=== PATIENT | female | born 1940 | race Caucasian/White ===

== ENCOUNTER 2016-09-24 20:35 | Observation (INO) ==
[2016-09-24] MEDS ORDERED: 0.9 % Sodium Chloride 1,000 ML IVC ONE (20:38)
--- NOTE | 2016-09-24 21:08 | Emergency Department Note ---
START Narrative - START START: I examined this patient and my medical decision-making was reviewed with the BLOOD TESTER/PA/Advanced Practice Nurse/Resident Physician. I agree with the documented findings, disposition and treatment plan as described except to the extent set forth below. ED attending note: Patient seen with emergency medicine resident Dr Dc. We independently evaluated the patient. We independently had [id number] contact with the patient. Please see a copy of his note for details of the history and physical, evaluation, management and disposition of this emergency Department patient. Briefly: 75-year-old female by EMS for acute altered mental status. History of dementia this is on top of this chronic issue which is "bubbly-type EMS and the patient's spouse shortly. Patient has both lapses in short long-term memory. Noncontrast head CT read by us prior to radiologic interpretation shows no acute bleed mass or shift. Awaiting remainder of the laboratory studies. Admission anticipated. Provided 30 minutes critical care service for this patient.
[2016-09-24 21:22] LABS: Basophils % 0.6 %; Hematocrit 34.8 % (35.3-44.9); Hemoglobin 12.3 g/dL (11.5-15.4); Immature Granulocytes % 0.3 % (0-4); Lymphocytes # 0.4 K/mcL (0.6-4.6); Lymphocytes % 6.3 %; Mean Corpuscular HGB Conc 35.3 g/dL (31.6-35.5); Mean Corpuscular Hemoglobin 32.7 pg (28.0-33.3); Mean Corpuscular Volume 92.6 fL (83.0-100.0); Mean Platelet Volume 8.7 fL (9.4-12.4); Monocytes # 0.8 K/mcL (0.0-1.3); Neutrophils # 5.2 K/mcL (1.6-8.9); Platelet Count 186 K/mcL (140-400); Red Blood Count 3.76 M/mcL (3.82-4.97); Segmented Neutrophils % 80.8 %
--- NOTE | 2016-09-24 21:31 | Emergency Department Note ---
Disposition Clinical Impression: Altered mental state, Hyponatremia, Generalized weakness UTI (urinary tract infection) Qualifiers: Urinary tract infection type: acute cystitis Hematuria presence: with hematuria Qualified Code(s): N30.01 - Acute cystitis with hematuria Disposition: Admitted As Inpatient Condition: Good Referrals: Ferny Barr MD [Primary Care Provider] - Forms: ED Satisfaction Letter Altered Mental Status HPI - General Chief Complaint: ED Altered Mental Status Stated Complaint: AMS, Vomiting, Weakness Source: patient, family Limitations: no limitations Nursing Notes Reviewed: Yes Vital Signs Reviewed: Yes - History of Present Illness HPI Narrative: 75-year-old female with a history of only dementia who takes only a daily aspirin presents to the emergency department with acute confusion. She has a history of dementia but over the last 12 hours she has had an acute worsening. Her states she has been generally weak all over but not one side. No history of stroke or cardiac disease in the past. She takes no anticoagulants other than aspirin. Patient is very confused and only oriented to person. She denies any chest pain or shortness of breath. Denies any abdominal pain. She did have a vomiting episode. Denies any weakness or numbness in her extremities. Denies any change in vision. Denies any headache. - Related Data Home Medications Medication Instructions Recorded Confirmed Aspirin 81 mg PO DAILY 03/18/16 09/24/16 Calcium Carbonate/Vitamin D3 1 each PO DAILY 09/24/16 09/24/16 [Calcium 600-Vit D3 200 Tablet] Allergies Allergy/AdvReac Type Severity Reaction Status Date / Time No Known Allergies Allergy Verified 03/18/16 15:04 All systems ED: reviewed and negative except as stated. Constitutional: Denies: fever, chills Cardiovascular: Denies: chest pain Respiratory: Denies: cough, dyspnea Gastrointestinal: Reports: nausea, vomiting. Denies: abdominal pain Musculoskeletal: Denies: back pain, neck pain Integumentary: Denies: rash Neurological: Denies: headache, weakness, numbness Endocrine: Denies: fatigue Past Medical History - Past Medical History Medical history: Reports: dementia Psychiatric history: Reports: no psych history SHIPPING AND RECEIVING ASSISTANT history: Reports: no SHIPPING AND RECEIVING ASSISTANT history - Social History Smoking Status: Never smoker Smokeless Tobacco Status: No Alcohol use: Reports: none Drug use: Reports: none Physical Exam General: Well-nourished appearing female, she does appear somewhat confused, alert to person only Cardiovascular: Regular rate and rhythm. S1, S2. No murmurs, rubs or gallops. Respiratory: Breath sounds clear bilaterally. No wheezing, rales or rhonchi. No resp distress Abdomen: Soft, nontender. No guarding, rebound or rigidity. Normal bowel sounds throughout. No palpable organomegaly Eyes: Pupils equally round and reactive to light, extraocular muscles intact, conjunctiva clear, no nystagmus HENT: Normocephalic, no signs of head injury. No oral mucosal lesions. Moist mucous membranes Neuro: Cranial nerves intact. No motor or sensory deficit. Normal cerebellar function including finger-nose and heel to moura. Musculoskeletal: No joint tenderness or swelling Skin: No lesions. No diaphoresis. Normal turgor. Normal color Psych: Confused - General Limitations: no limitations General appearance: alert Course Course Narrative: Presents with confusion starting today. History of pneumonia and UTI in the past. On exam patient is confused, oriented to person only. It is unclear baseline but states this is now her normal. She went out to eat today and was doing just fine. On exam lungs are clear, abdomen is soft, heart and lungs unremarkable. Lab work is unremarkable other than a sodium which is 129. She was given some IV fluids for this. Urinalysis shows nitrite positive, leukocyte esterase positive UTI with many bacteria under microscope. She was given IV fluids and 1 g of Rocephin in the emergency department. CT of the head returns showing nothing acute other than some ischemic chronic vascular disease. No focal deficits on examination. When discussing treatment plan with the seems a bit confused and may suffer from some dementia himself. My concern is that the patient will not get adequate treatment at home and the reasons to return do not seem to be understood by the . With her acute change, generalized weakness, and little back-up care at home, I feel that admission to the hospital for observation is the safest. Discussed this with the and he is comfortable with this too. Plan to admit for UTI, hyponatremia, generalized weakness and altered mental status. Discussed with the on-call hospitalist, Dr. Conrad who accepts remission, no further orders at this time Vital Signs Temperature 98.1 F 09/24/16 20:38 Pulse Rate 78 09/24/16 20:38 Respiratory Rate 18 09/24/16 20:38 Blood Pressure 145/77 09/24/16 20:38 O2 Sat by Pulse Oximetry 98 09/24/16 20:38 Temperature 98.1 F 09/24/16 20:38 Pulse Rate 78 09/24/16 20:38 Respiratory Rate 18 09/24/16 20:38 Blood Pressure 145/77 09/24/16 20:38 O2 Sat by Pulse Oximetry 98 09/24/16 20:38 Oxygen Delivery Oxygen Delivery Room Air Altered Mental Status - Lab Data Result diagrams: 09/24/16 21:15 09/24/16 21:15 Lab Results 09/24/16 09/24/16 09/24/16 Range/Units 20:38 21:15 21:15 WBC 6.5 (4.3-11.1) K/mcL RBC 3.76 L (3.82-4.97) M/mcL Hgb 12.3 (11.5-15.4) g/dL Hct 34.8 L (35.3-44.9) % MCV 92.6 (83.0-100.0) fL MCH 32.7 (28.0-33.3) pg MCHC 35.3 (31.6-35.5) g/dL RDW 12.0 (11.5-14.5) % Plt Count 186 (140-400) K/mcL MPV 8.7 L (9.4-12.4) fL Immature Gran % 0.3 (0-4) % Seg Neutrophils % 80.8 % Lymphocytes % 6.3 % Monocytes % 12.0 % Eosinophils % 0.0 % Basophils % 0.6 % Neutrophils # 5.2 (1.6-8.9) K/mcL Lymphocytes # 0.4 L (0.6-4.6) K/mcL Monocytes # 0.8 (0.0-1.3) K/mcL Eosinophils # 0.0 (0.0-0.6) K/mcL Basophils # 0.0 (0.0-0.2) K/mcL Sodium 129 L (136-145) mEq/L Potassium 3.7 (3.5-4.5) mEq/L Chloride 98 (98-109) mEq/L Carbon Dioxide 22 (19-29) mEq/L BUN 9 (7-20) mg/dL Creatinine 0.64 (0.57-1.11) mg/dL Est GFR ( Amer) > 60 (> 60) Est GFR (Non-Af Amer) > 60 (> 60) BUN/Creatinine Ratio 14 (6-26) Glucose 115 H (70-99) mg/dL Calculated Osmolality 268 L (280-300) Calcium 8.9 (8.6-10.8) mg/dL Total Bilirubin 0.7 (0.2-1.2) mg/dL AST 24 (5-34) Units/L ALT 8 (0-55) Units/L Alkaline Phosphatase 66 (38-126) Units/L Troponin I (0-0.03) ng/mL Serum Total Protein 6.8 (6.0-8.3) g/dL Albumin 4.0 (3.5-5.0) g/dL Globulin 2.8 (2.4-3.5) g/dL Albumin/Globulin Ratio 1.4 (1.1-2.2) TSH 0.641 (0.350-4.840) mcIU/mL Urine Color Yellow (Yellow) Urine Clarity Cloudy A (Clear) Urine pH 6.5 (5.0-8.0) pH Units Ur Specific [place] 1.014 (1.010-1.025) Urine Protein Negative (Neg-Trace) mg/dL Urine Glucose (UA) Normal (Normal) mg/dL Urine Ketones Negative (Negative) mg/dL Urine Blood Large H (Negative) Urine Nitrite Positive A (Negative) Urine Bilirubin Negative (Negative) Urine Urobilinogen Normal (Normal) mg/dL Ur Leukocyte Esterase Moderate H (Negative) Urine Microscopic RBC 15-30 H (0-3) per hpf Urine Microscopic WBC 15-30 H (0-3) per hpf Ur Squamous Epith Cells None Seen (None-Few) per lpf Urine Bacteria Many H (None-Few) per hpf Hyaline Casts Few (None-Few) per lpf Urine Yeast Test Not Performed Ur Culture Indicated? YES A (NO) 09/24/16 Range/Units 21:15 WBC (4.3-11.1) K/mcL RBC (3.82-4.97) M/mcL Hgb (11.5-15.4) g/dL Hct (35.3-44.9) % MCV (83.0-100.0) fL MCH (28.0-33.3) pg MCHC (31.6-35.5) g/dL RDW (11.5-14.5) % Plt Count (140-400) K/mcL MPV (9.4-12.4) fL Immature Gran % (0-4) % Seg Neutrophils % % Lymphocytes % % Monocytes % % Eosinophils % % Basophils % % Neutrophils # (1.6-8.9) K/mcL Lymphocytes # (0.6-4.6) K/mcL Monocytes # (0.0-1.3) K/mcL Eosinophils # (0.0-0.6) K/mcL Basophils # (0.0-0.2) K/mcL Sodium (136-145) mEq/L Potassium (3.5-4.5) mEq/L Chloride (98-109) mEq/L Carbon Dioxide (19-29) mEq/L BUN (7-20) mg/dL Creatinine (0.57-1.11) mg/dL Est GFR ( Amer) (> 60) Est GFR (Non-Af Amer) (> 60) BUN/Creatinine Ratio (6-26) Glucose (70-99) mg/dL Calculated Osmolality (280-300) Calcium (8.6-10.8) mg/dL Total Bilirubin (0.2-1.2) mg/dL AST (5-34) Units/L ALT (0-55) Units/L Alkaline Phosphatase (38-126) Units/L Troponin I 0.01 (0-0.03) ng/mL Serum Total Protein (6.0-8.3) g/dL Albumin (3.5-5.0) g/dL Globulin (2.4-3.5) g/dL Albumin/Globulin Ratio (1.1-2.2) TSH (0.350-4.840) mcIU/mL Urine Color (Yellow) Urine Clarity (Clear) Urine pH (5.0-8.0) pH Units Ur Specific [place] (1.010-1.025) Urine Protein (Neg-Trace) mg/dL Urine Glucose (UA) (Normal) mg/dL Urine Ketones (Negative) mg/dL Urine Blood (Negative) Urine Nitrite (Negative) Urine Bilirubin (Negative) Urine Urobilinogen (Normal) mg/dL Ur Leukocyte Esterase (Negative) Urine Microscopic RBC (0-3) per hpf Urine Microscopic WBC (0-3) per hpf Ur Squamous Epith Cells (None-Few) per lpf Urine Bacteria (None-Few) per hpf Hyaline Casts (None-Few) per lpf Urine Yeast Ur Culture Indicated? (NO) - EKG Data EKG results narrative: EKG shows a sinus rhythm with a rate of [address] elevation or depression. GA, QRS, QT interval within normal limits. Normal axis. Poor R wave progression. Previous EKG on 08/08/2007 shows similar wave morphology without any acute ischemic changes. TPA Checklist - LKW: 3-4.5 hrs Add. Contraindications Patient/family understanding: The patient/family members have been counseled and understood the risk, benefit , and alternatives of treatment.
[2016-09-24 21:36] LABS: Alanine Aminotransferase 8 Units/L (0-55); Albumin/Globulin Ratio 1.4 (1.1-2.2); Alkaline Phosphatase 66 Units/L (38-126); Aspartate Amino Transferase 24 Units/L (5-34); BUN/Creatinine Ratio 14 (6-26); Bilirubin,Total 0.7 mg/dL (0.2-1.2); Blood Urea Nitrogen 9 mg/dL (7-20); Calcium 8.9 mg/dL (8.6-10.8); Carbon Dioxide 22 mEq/L (19-29); Chloride 98 mEq/L (98-109); Globulin 2.8 g/dL (2.4-3.5); Glucose 115 mg/dL (70-99); Osmolality,Calculated 268 (280-300); Potassium 3.7 mEq/L (3.5-4.5); Sodium 129 mEq/L (136-145); Total Protein 6.8 g/dL (6.0-8.3); eGFR For African Americans > 60 (> 60); eGFR For Non-African Americans > 60 (> 60)
[2016-09-24 21:46] LABS: Bilirubin,Urine Negative (Negative); Blood,Urine Large (Negative); Clarity,Urine Cloudy (Clear); Color,Urine Yellow (Yellow); Glucose,Urine (UA) Normal (Normal); Ketones,Urine Negative (Negative); Leukocyte Esterase,Urine Moderate (Negative); Nitrite,Urine Positive (Negative); PH,Urine 6.5 pH Units (5.0-8.0); Protein,Urine Negative (Neg-Trace); Specific Gravity,Urine 1.014 (1.010-1.025); Urobilinogen,Urine Normal (Normal)
[2016-09-24 21:47] LABS: Hyaline Casts,Urine Few per lpf (None-Few); Squamous Epithelial Cell,Urine None Seen per lpf (None-Few); WBC,Urine 15-30 per hpf (0-3)
[2016-09-24 21:57] LABS: Bacteria,Urine Many per hpf (None-Few); RBC,Urine 15-30 per hpf (0-3)
[2016-09-24 21:58] LABS: Thyroid Stimulating Hormone 0.641 mcIU/mL (0.350-4.840)
[2016-09-24] MEDS ORDERED: Ondansetron 4 MG/2 ML VIAL IVP PRN (23:38)
[2016-09-24] MEDS ORDERED: Naloxone 0.4 MG/ML INJ IVP PRN (23:38)
[2016-09-24] MEDS ORDERED: Acetaminophen 325 MG TABLET PO PRN (23:38)
[2016-09-24] MEDS ORDERED: 0.9 % Sodium Chloride 1,000 ML IVC SCH (23:45)
--- NOTE | 2016-09-24 23:50 | Internal Med History&Physical ---
Date of Encounter: 09/25/16 Time of Encounter: 23:05 Assessment and Plan (1) UTI (urinary tract infection) Current visit: Yes Status: Acute 1. Culture urine. 2. Continue IV antibiotics and adjust according to urine culture results. Qualifiers: Urinary tract infection type: acute cystitis Hematuria presence: with hematuria Qualified Code(s): N30.01 - Acute cystitis with hematuria (2) Nausea and vomiting Current visit: No Status: Acute 1. Suspect viral etiology and/or secondary to UTI. 2. Hydrate with IVF and treat nasuea with anti-emetics. 3. Monitor I/O. Qualifiers: Vomiting type: unspecified Vomiting Intractability: unspecified Qualified Code(s): R11.2 - Nausea with vomiting, unspecified (3) Dementia Current visit: No Status: Chronic 1. According to , patient has history of mild dementia and she has no functional impairment when feeling well. 2. Pt currently is NOT at her baseline and she represents an acute change. 3. Likely due to UTI. 4. Monitor closely and will update as to return to baseline state. Qualifiers: Dementia type: Alzheimer's disease Alzheimer's disease onset: early-onset Dementia behavioral disturbance: with behavioral disturbance Qualified Code( s): G30.0 - Alzheimer's disease with early onset; F02.81 - Dementia in other diseases classified elsewhere with behavioral disturbance (4) Acute encephalopathy Current visit: Yes Status: Acute 1. Most likely due to UTI. 2. Will also check for Influenza and treat if necessary. 3. Avoid mind-altering medications and monitor closely. (5) DVT prophylaxis Current visit: Yes Status: Acute 1. Heparin SQ. Internal Medicine - H&P: HPI Chief complaint: confusion; weakness; vomiting Admitted From: Emergency Dept Plans for Post Hospital Care: Home History of present illness: Ms. Haynes is a 75 year old female who presents with a 1 day history of confusion , weakness, nausea, and vomiting. History is obtained exclusively from patient' s and from ER notes and records. Patient has a history of mild dementia but, according to her , she is fairly functional and independent. She was at her baseline state earlier today, and she actually went to lunch with some friends. Later this afternoon, she became weak, confused, had some nausea, and had a couple episodes of vomiting. Because of persistent and worsening confusion and weakness, patient's called the squad who brought patient to ER. Workup in the ER was negative except for findings consistent with UTI. She will subsequently admitted to the hospitalist service. Upon my assessment of the patient, she is somnolent, arousable, confused, disoriented, and appears dehydrated. Her is present at the bedside in the ER. He confirms the above history. He denies patient having had any fevers , chills, or night sweats. She has had no cough or congestion. She has had no ill contacts that he is aware of. He confirms her history of baseline dementia. He denies patient has any history of recurrent UTI, but he did confirm she did have one recent UTI several months ago which led to a previous admission. Past Med Surg Social Fam HX - Past Medical History Source: old records reviewed, obtained from family Medical history: dementia Psychiatric history: no psych history - Past Surgical History Surgical History: no surgical history - Social History Smoking Status: Never smoker Smokeless Tobacco Status: No Alcohol use: occasionally (usually one drink with dinner most nights of the week -- per ) Drug use: none Current living situation: Home, With Family Activity Level: Independent ambulation Recent Out of Country Travel Within the Last 8 Weeks: No - Family History Mother History Unknown: Yes Living Status: Father History Unknown: Yes Living Status: Internal Medicine - H&P: Meds Aspirin 81 mg PO DAILY 03/18/16 [History] Calcium Carbonate/Vitamin D3 [Calcium 600-Vit D3 200 Tablet] 1 each PO DAILY [History] Allergies No Known Allergies Allergy (Verified 03/18/16 15:04) ROS unobtainable: due to mental status Review of systems: ROS as obtained by detailed below - Constitutional Constitutional: no chills, no fever(s), no night sweats - EENT Eyes: no blurry vision Ears: no tinnitus Nose, mouth and throat: no nasal congestion, no sinus pain, no sore throat - Cardiovascular Cardiovascular ROS IM: no chest pain, no dyspnea, no dyspnea on exertion - Respiratory Respiratory: no cough, no hemoptysis, no chest congestion - Gastrointestinal Gastrointestinal: nausea, vomiting, no abdominal pain, no diarrhea - Genitourinary Genitourinary: no flank pain, no hematuria - Musculoskeletal Musculoskeletal ROS IM: no arthralgias, no back pain - Integumentary Integumentary IM: no rash - Neurological Neurological ROS: confusion, weakness, no focal weakness, no frequent falls, no headache(s) - Psychiatric Psychiatric: no anxiety, no depression - Endocrine Endocrine IM: no polydipsia, no polyuria - Allergic/Immunologic Allergic/Immunologic: no GI upset with certain foods - Constitutional Vitals: Temp Pulse Resp BP Pulse Ox 98.1 F 78 18 145/77 98 09/24/16 20:38 09/24/16 20:38 09/24/16 20:38 09/24/16 20:38 09/24/16 20:38 General appearance: Present: cooperative, A&O X 1, pleasant, no acute distress Exam: looks dehydrated; sleeping -- easily arousable - Head Head exam: Present: atraumatic, normal inspection - Expanded Head Exam Head exam expanded: Absent: abrasion, contusion, general tenderness - Eye Eye exam: Present: EOMI, normal appearance. Absent: scleral icterus Pupils: Present: normal accommodation - ENT ENT exam: Present: mucous membranes dry, normal exam, normal oropharynx - Neck Neck exam general surgery: Present: full ROM, supple. Absent: tenderness, nuchal rigidity, thyromegaly - Expanded Neck Exam Neck exam: Absent: carotid bruit - Respiratory Respiratory exam: Present: CTAB. Absent: rales, respiratory distress, rhonchi, wheezes - Cardiovascular Cardiovascular exam: Present: RRR, +S1, +S2. Absent: diastolic murmur, systolic murmur - GI/Abdominal GI/Abdominal exam: Present: normal bowel sounds, soft. Absent: guarding, hepatomegaly, mass, rebound, splenomegaly, tenderness - Extremities Exam Extremities exam: Present: full ROM, warm. Absent: calf tenderness, joint swelling, pedal edema, tenderness - Back Exam Back exam: Present: normal inspection. Absent: CVA tenderness (L), CVA tenderness (R), tenderness - Neurological Exam Neurological exam: Present: altered, CN II-XII intact, no focal deficits, strengths equal and symetr throughout. Absent: speech deficit - Psychiatric Psychiatric exam: Present: normal affect. Absent: agitated, anxious, depressed - Skin Skin exam: Present: dry, warm. Absent: rash Internal Med - H&P Results - Labs CBC & Chem 7: 09/24/16 21:15 09/24/16 21:15 - EKG Data -: EKG Interpreted by Myself EKG shows normal: sinus rhythm Rate: normal - EKG Data Prior EKG available for review: yes When compared to previous EKG: there is no significant change EKG comments: 09/24/16 23:55 WNL; no acute changes - Diagnostic Studies Chest x-ray Status: image reviewed by me (lungs clear)
[2016-09-25] MEDS: *HR* Heparin 5,000 UNIT/ML VIAL SQ SCH ×3 (01:22→18:23)
[2016-09-25 05:41] LABS: Basophils % 0.6 %; Hemoglobin 12.2 g/dL (11.5-15.4); Immature Granulocytes % 0.2 % (0-4); Lymphocytes # 0.6 K/mcL (0.6-4.6); Lymphocytes % 11.6 %; Mean Corpuscular HGB Conc 34.9 g/dL (31.6-35.5); Mean Corpuscular Hemoglobin 32.9 pg (28.0-33.3); Mean Corpuscular Volume 94.3 fL (83.0-100.0); Mean Platelet Volume 9.3 fL (9.4-12.4); Monocytes % 19.4 %; Neutrophils # 3.4 K/mcL (1.6-8.9); Platelet Count 169 K/mcL (140-400); Red Blood Count 3.71 M/mcL (3.82-4.97); Red Cell Distribution Width 12.2 % (11.5-14.5); Segmented Neutrophils % 68.2 %
[2016-09-25 05:59] LABS: Alanine Aminotransferase 7 Units/L (0-55); Albumin 3.6 g/dL (3.5-5.0); Albumin/Globulin Ratio 1.4 (1.1-2.2); Alkaline Phosphatase 60 Units/L (38-126); Aspartate Amino Transferase 22 Units/L (5-34); BUN/Creatinine Ratio 10 (6-26); Bilirubin,Total 0.6 mg/dL (0.2-1.2); Blood Urea Nitrogen 6 mg/dL (7-20); Calcium 8.6 mg/dL (8.6-10.8); Carbon Dioxide 23 mEq/L (19-29); Chloride 101 mEq/L (98-109); Globulin 2.6 g/dL (2.4-3.5); Glucose 108 mg/dL (70-99); Magnesium 1.8 mg/dL (1.6-2.6); Osmolality,Calculated 274 (280-300); Potassium 3.6 mEq/L (3.5-4.5); Sodium 133 mEq/L (136-145); Total Protein 6.2 g/dL (6.0-8.3); eGFR For African Americans > 60 (> 60); eGFR For Non-African Americans > 60 (> 60)
[2016-09-25 06:34] LABS: Platelet Estimate Normal (Normal)
[2016-09-25] MEDS: Aspirin 81 MG TAB.CHEW PO SCH (10:43)
[2016-09-25] MEDS ORDERED: 0.9 % Sodium Chloride 1,000 ML IVC SCH (11:48)
--- NOTE | 2016-09-25 19:00 | Internal Med Progress Note ---
Date of Encounter: 09/25/16 Time of Encounter: 11:30 - Assessment and plan (1) Urinary retention Current Visit: Yes Status: Acute (2) UTI (urinary tract infection) Current Visit: Yes Status: Acute Qualifiers: Urinary tract infection type: acute cystitis Hematuria presence: with hematuria Qualified Code(s): N30.01 - Acute cystitis with hematuria (3) Constipation Current Visit: No Status: Acute Qualifiers: Constipation type: slow transit constipation Qualified Code(s): K59.01 - Slow transit constipation (4) Dementia Current Visit: No Status: Chronic Qualifiers: Dementia type: Alzheimer's disease Alzheimer's disease onset: early-onset Dementia behavioral disturbance: with behavioral disturbance Qualified Code( s): G30.0 - Alzheimer's disease with early onset; F02.81 - Dementia in other diseases classified elsewhere with behavioral disturbance - Time Spent With Patient Plan discussed with the at bedsi is straightCath, check bladder scan every 6 hours, Continue current antibiotics. Increase fluids, add laxatives , Ambulate , PT consult 25 - 35 minutes - Subjective Interval history: patient is more alert than yesterday, need maximum assistance with ambulation, low oral intake, post voiding residual 550. - Constitutional Vitals: Temp Pulse Resp BP Pulse Ox 99.1 F 70 16 122/60 98 09/25/16 15:10 09/25/16 15:10 09/25/16 15:10 09/25/16 15:10 09/25/16 15:10 General appearance: Present: cooperative, A&O X 1, pleasant, no acute distress - Neck Neck exam general surgery: Present: supple, trachea midline. Absent: lymphadenopathy - Respiratory Respiratory exam: Present: decreased breath sounds. Absent: accessory muscle use, rales, rhonchi, wheezes - Cardiovascular Cardiovascular exam: Present: RRR, +S1, +S2. Absent: diastolic murmur, gallop, rubs, systolic murmur - GI/Abdominal GI/Abdominal exam: Present: normal bowel sounds, soft, tenderness (Suprapubic tenderness), no peritoneal signs. Absent: distended - Extremities Exam Extremities exam: Present: warm, radial pulses palpable and symetrical. Absent : calf tenderness, cyanotic, pedal edema - Skin Skin exam: Present: dry, intact Internal Medicine: Result - Labs CBC & Chem 7: 09/25/16 04:59 09/25/16 04:59 Labs: Short CBC 09/25/16 Range/Units 04:59 WBC 5.0 (4.3-11.1) K/mcL Hgb 12.2 (11.5-15.4) g/dL Hct 35.0 L (35.3-44.9) % Plt Count 169 (140-400) K/mcL Neutrophils # 3.4 (1.6-8.9) K/mcL BMP 09/25/16 04:59 Sodium 133 L Potassium 3.6 Chloride 101 Carbon Dioxide 23 BUN 6 L Creatinine 0.61 Glucose 108 H Calcium 8.6 Liver Function 09/25/16 Range/Units 04:59 Total Bilirubin 0.6 (0.2-1.2) mg/dL AST 22 (5-34) Units/L ALT 7 (0-55) Units/L Alkaline Phosphatase 60 (38-126) Units/L Albumin 3.6 (3.5-5.0) g/dL Consult Discharge Plan - Plan Referrals: Ferny Barr MD [Primary Care Provider] -
[2016-09-25] MEDS ORDERED: Sennosides 8.6 MG TABLET PO ONE (19:15)
[2016-09-25] MEDS ORDERED: Thiamine (B-1) 100 MG in D5% in Water 50 ML IVPB STA (19:17)
[2016-09-25] MEDS: Thiamine (B-1) 100 MG TABLET PO SCH (22:09)
[2016-09-26] MEDS: *HR* Heparin 5,000 UNIT/ML VIAL SQ SCH (06:21)
[2016-09-26 06:31] LABS: BUN/Creatinine Ratio 8 (6-26); Calcium 8.9 mg/dL (8.6-10.8); Carbon Dioxide 23 mEq/L (19-29); Chloride 103 mEq/L (98-109); Glucose 100 mg/dL (70-99); Osmolality,Calculated 277 (280-300); Potassium 3.5 mEq/L (3.5-4.5); Sodium 135 mEq/L (136-145); eGFR For African Americans > 60 (> 60); eGFR For Non-African Americans > 60 (> 60)
[2016-09-26 06:33] LABS: Blood Urea Nitrogen 5 mg/dL (7-20)
--- NOTE | 2016-09-26 08:56 | Discharge Summary ---
Date of Encounter: 09/26/16 Time of Encounter: 07:30 - Discharge Diagnosis (1) Urinary retention Priority: Secondary Status: Acute (2) UTI (urinary tract infection) Priority: Primary Status: Acute Qualifiers: Urinary tract infection type: acute cystitis Hematuria presence: with hematuria Qualified Code(s): N30.01 - Acute cystitis with hematuria (3) Constipation Priority: Secondary Status: Acute Qualifiers: Constipation type: slow transit constipation Qualified Code(s): K59.01 - Slow transit constipation (4) Dementia Priority: Secondary Status: Chronic Qualifiers: Dementia type: Alzheimer's disease Alzheimer's disease onset: early-onset Dementia behavioral disturbance: with behavioral disturbance Qualified Code( s): G30.0 - Alzheimer's disease with early onset; F02.81 - Dementia in other diseases classified elsewhere with behavioral disturbance - Discharge Medications Prescriptions: Ciprofloxacin HCl [Cipro] 500 mg PO BID #14 tablet Cyanocobalamin (B-12) [Vitamin B12] 1,000 mcg PO DAILY #90 tablet Docusate [Colace] 100 mg PO BID PRN #60 capsule PRN Reason: Constipation Ergocalciferol (VITAMIN D2) [Drisdol (50,000 Unit)] 50,000 unit PO QWEEK #20 capsule Thiamine (B-1) [Vitamin B-1] 200 mg PO DAILY #90 tablet Home Medications: Aspirin 81 mg PO DAILY 03/18/16 [History] Calcium Carbonate/Vitamin D3 [Calcium 600-Vit D3 200 Tablet] 1 each PO DAILY [History] Ciprofloxacin HCl [Cipro] 500 mg PO BID #14 tablet 09/26/16 [Rx] Cyanocobalamin (B-12) [Vitamin B12] 1,000 mcg PO DAILY #90 tablet 09/26/16 [Rx] Docusate [Colace] 100 mg PO BID PRN #60 capsule 09/26/16 [Rx] Ergocalciferol (VITAMIN D2) [Drisdol (50,000 Unit)] 50,000 unit PO QWEEK #20 capsule 09/26/16 [Rx] Thiamine (B-1) [Vitamin B-1] 200 mg PO DAILY #90 tablet 09/26/16 [Rx] Allergies/Adverse Reactions: Allergies No Known Allergies Allergy (Verified 03/18/16 15:04) Date of admission: 09/24/16 23:36 Primary care physician: Ferny Barr MD Discharging clinician: Sobeida Escobedo - Patient Status Disposition: Home Health Service Condition: Good Overall status at discharge: patient is progressing back to baseline - Discharge Instructions Instructions: Urinary Tract Infection in Women (DC) Follow Up With: Ferny Barr MD [Primary Care Provider] - 10/07/16 10:00 am - Diet and Activity Activity: increase activity as tolerated Diet: regular diet Hospital course: Ms. Haynes is a 75 year old female who presents with 2 emergency room with the confusion 2 episodes of nonbilious nonbloody vomitus , patient has generalized weakness to the extent has to call EMS to bring patient to the hospital .. Patient was clinically dry .urinalysis showed patient had urinary tract infection .patient was started on IV antibiotics .started IV hydration .continue to monitor the patient .bladder scan showed postvoiding residual of 500 .Straight catheter was done several times .patient continued to have urinary retention .most likely neurogenic bladder . PT/ OT was consulted. Patient was ambulating without any problem was physical therapy. Mental status back to baseline. Patient tolerated all her meals. Responded to laxative and had bowel movement. I had long discussion with at bedside about long- term plan especially with her urinary retention. He wanted her to go home, she becomes very agitated being in the hospital. He agreed with home health care. Prescription for self-catheterization was ordered. Plan of discharge discussed with patient. Family physician was notified , patient to follow-up with family doctor in 1 week May need to refill her for urologist and neurologist - Time Spent with Patient Total time spent providing and/or coordinating discharge services: - Constitutional Vitals: Temp Pulse Resp BP Pulse Ox 98.8 F 61 14 148/77 97 09/26/16 07:53 09/26/16 07:53 09/26/16 07:53 09/26/16 07:53 09/26/16 07:53 General appearance: Present: cooperative, A&O X 1, pleasant, no acute distress
[2016-09-26] MEDS: Thiamine (B-1) 100 MG TABLET PO SCH (09:21)
[2016-09-26] MEDS: Aspirin 81 MG TAB.CHEW PO SCH (09:21)
[2016-09-26 11:50] VITALS: BP 118/71
--- NOTE | 2016-09-26 16:36 | Physician Discharge Referral ---
Home Health/Hosp Referral Info Transfer to: Home Health Provider in Charge Post Discharge: PCP - Diagnosis (1) Urinary retention Priority: Primary Status: Acute (2) UTI (urinary tract infection) Priority: Primary Status: Acute (3) Constipation Priority: Secondary Status: Acute (4) Dementia Priority: Secondary Status: Chronic - Respiratory Orders Smoking Cessation: Smoking cessation has been advised. For more information, call the [place] Tobacco Quit Line at 4-522-PWKF-NOW. - Diet/Nutrition Diet/Nutrition Orders: Regular - Activity Activity Orders: Ambulate - Services Needed Following services are medically necessary services: Nursing - Transfer Medications Prescriptions: Ciprofloxacin HCl [Cipro] 500 mg PO BID #14 tablet Cyanocobalamin (B-12) [Vitamin B12] 1,000 mcg PO DAILY #90 tablet Docusate [Colace] 100 mg PO BID PRN #60 capsule PRN Reason: Constipation Ergocalciferol (VITAMIN D2) [Drisdol (50,000 Unit)] 50,000 unit PO QWEEK #20 capsule Thiamine (B-1) [Vitamin B-1] 200 mg PO DAILY #90 tablet Home Medications: Aspirin 81 mg PO DAILY 03/18/16 [History] Calcium Carbonate/Vitamin D3 [Calcium 600-Vit D3 200 Tablet] 1 each PO DAILY [History] Ciprofloxacin HCl [Cipro] 500 mg PO BID #14 tablet 09/26/16 [Rx] Cyanocobalamin (B-12) [Vitamin B12] 1,000 mcg PO DAILY #90 tablet 09/26/16 [Rx] Docusate [Colace] 100 mg PO BID PRN #60 capsule 09/26/16 [Rx] Ergocalciferol (VITAMIN D2) [Drisdol (50,000 Unit)] 50,000 unit PO QWEEK #20 capsule 09/26/16 [Rx] Thiamine (B-1) [Vitamin B-1] 200 mg PO DAILY #90 tablet 09/26/16 [Rx] Allergies/Adverse Reactions: Allergies No Known Allergies Allergy (Verified 03/18/16 15:04) Certification: patint need education for self catheterizing Homebound Reason: Altered mental status requiring supervision when leaving home (has deminithia, she is not home bound ) Attestation: My signature below is to certify that this patient is under my care and that I, or nurse practitioner, or a physician's metal moulder's assistant working with me, has a face-to -face encounter with this patient.
--- NOTE | 2016-09-26 17:44 | Electrocardiograph Report ---
[place] [id number] Test Date: 2016-09-24 Pat Name: Beba Haynes Department: 104 Room: 3A22 Gender: F [employer] Sheet Metal Worker: : 1940 Requested By: Terrance Dc Order Number: [id number] Reading MD: Honorio Bermudez Measurements Intervals [place] Rate: 78 P: 56 NC: 194 QRS: 14 QRSD: 99 T: 48 QT: 363 QTc: 396 Interpretive Statements SINUS RHYTHM Electronically Signed On 09-26-2016 17:42:32 EST by Honorio Bermudez
== END 2016-09-26 17:02 | disposition home health service (06) ==
LOC: 3ANU 20:35 → EMEROO 20:35 → 3ANU 09-25 00:27
PROVIDERS: ADMIT Internal Medicine; ATTEND Internal Medicine

== ENCOUNTER 2016-11-03 16:28 | Inpatient (IN) ==
[2016-11-03] MEDS ORDERED: 0.9 % Sodium Chloride 1,000 ML IVC ONE ×2 (16:58→19:46)
[2016-11-03 17:38] LABS: Basophils % 0.2 %; Eosinophils # 0.1 K/mcL (0.0-0.6); Eosinophils % 0.6 %; Hematocrit 42.2 % (35.3-44.9); Hemoglobin 14.4 g/dL (11.5-15.4); Immature Granulocytes % 0.5 % (0-4); Lymphocytes # 0.4 K/mcL (0.6-4.6); Lymphocytes % 2.6 %; Mean Corpuscular HGB Conc 34.1 g/dL (31.6-35.5); Mean Corpuscular Hemoglobin 32.7 pg (28.0-33.3); Mean Corpuscular Volume 95.7 fL (83.0-100.0); Mean Platelet Volume 8.7 fL (9.4-12.4); Monocytes # 0.9 K/mcL (0.0-1.3); Monocytes % 5.3 %; Neutrophils # 15.2 K/mcL (1.6-8.9); Platelet Count 215 K/mcL (140-400); Red Blood Count 4.41 M/mcL (3.82-4.97); Red Cell Distribution Width 12.3 % (11.5-14.5); Segmented Neutrophils % 90.8 %
[2016-11-03 17:45] LABS: INR 1.1; Prothrombin Time 11.8 Seconds (9.4-12.1)
[2016-11-03 17:48] LABS: Activated Partial Thrombo Time 27.9 Seconds (26.0-36.0)
[2016-11-03 17:55] LABS: Alanine Aminotransferase 8 Units/L (0-55); Albumin 3.9 g/dL (3.5-5.0); Albumin/Globulin Ratio 1.3 (1.1-2.2); Alkaline Phosphatase 65 Units/L (38-126); Amylase 20 Units/L (25-125); Aspartate Amino Transferase 20 Units/L (5-34); BUN/Creatinine Ratio 12 (6-26); Bilirubin,Direct 0.4 mg/dL (0.0-0.5); Bilirubin,Indirect 0.7 mg/dL (0.0-1.2); Bilirubin,Total 1.1 mg/dL (0.2-1.2); Blood Urea Nitrogen 8 mg/dL (7-20); Calcium 9.2 mg/dL (8.6-10.8); Carbon Dioxide 17 mEq/L (19-29); Chloride 102 mEq/L (98-109); Glucose 125 mg/dL (70-99); Lipase 6 Units/L (8-78); Osmolality,Calculated 278 (280-300); Potassium 3.4 mEq/L (3.5-4.5); Sodium 134 mEq/L (136-145); Total Protein 6.9 g/dL (6.0-8.3); eGFR For African Americans > 60 (> 60); eGFR For Non-African Americans > 60 (> 60)
[2016-11-03 18:34] LABS: Bilirubin,Urine Negative (Negative); Blood,Urine Large (Negative); Clarity,Urine Clear (Clear); Color,Urine Yellow (Yellow); Glucose,Urine (UA) Normal (Normal); Ketones,Urine 80 mg/dL (Negative); Leukocyte Esterase,Urine Negative (Negative); Nitrite,Urine Negative (Negative); Protein,Urine Negative (Neg-Trace); Specific Gravity,Urine 1.015 (1.010-1.025); Urobilinogen,Urine Normal (Normal)
[2016-11-03 18:35] LABS: Bacteria,Urine None Seen per hpf (None-Few); Hyaline Casts,Urine None Seen per lpf (None-Few); RBC,Urine 30-50 per hpf (0-3); Squamous Epithelial Cell,Urine Many per lpf (None-Few); WBC,Urine 0-3 per hpf (0-3)
--- NOTE | 2016-11-03 18:53 | Emergency Department Note ---
START Narrative - START START: I examined this patient and my medical decision-making was reviewed with the DYNAMITE PACKING MACHINE FEEDER/PA/Advanced Practice Nurse/Resident Physician. I agree with the documented findings, disposition and treatment plan as described except to the extent set forth below. 76-year-old female presents with altered mental status. states the patient was seen 1 week ago and diagnosed with a urinary tract infection. She was started on nitrofurantoin and initially improved. Over the past 24 hours the patient has become progressively more weak. Today the states that she has altered mental status and is not recognize her house or surroundings. Patient is unable to give any history regarding her case and presentation and is resting peacefully on the bed. Patient is tachycardic however she is afebrile. Patient will be evaluated for possible sepsis and worsening of her UTI. Urine does not show a significant amount of white blood cells. CT of the head is negative for acute intracranial hemorrhage or fracture. Patient has a leukocytosis and acute kidney injury. Patient will likely need to be admitted to the hospital for her altered mental status. Patient family initially requested transfer to [facility] however they have since changed her mind and are comfortable with admission to [facility].
--- NOTE | 2016-11-03 19:27 | Emergency Department Note ---
Disposition Clinical Impression: Atrial fibrillation with RVR UTI (urinary tract infection) Qualifiers: Urinary tract infection type: site unspecified Hematuria presence: with hematuria Qualified Code(s): N39.0 - Urinary tract infection, site not specified ; R31.9 - Hematuria, unspecified Sepsis Qualifiers: Sepsis type: sepsis due to unspecified organism Qualified Code(s): A41.9 - Sepsis, unspecified organism Disposition: Admitted As Inpatient Condition: Fair Time of Disposition: 19:47 General Adult HPI - General Chief complaint: ED Altered Mental Status Stated complaint: worsening "UTI" Time Seen by Provider: 11/03/16 16:59 Source: patient, family, EMS Limitations: altered mental status Nursing Notes Reviewed: Yes Vital Signs Reviewed: Yes - History of Present Illness HPI Narrative: Patient is a 76-year-old female who presents to [facility] ED with a chief complaint of altered mental status. Patient was seen here and diagnosed with a urinary tract infection one week ago. She is placed on Macrobid. states since going home, she has been increasingly confused and altered. She does have a past medical history of some dementia. However it has never been this bad before. Patient is unable to cooperate with exam and is speaking nonsensical things. No known fever. Patient is tachycardic. Patient has been admitted several times in the past for urinary tract infections with altered mental status. Onset (ago): day(s) Pain Scale: 6 Associated symptoms: Reports: confusion, weakness. Denies: chest pain, cough, fever/chills, headaches, nausea/vomiting, shortness of breath Treatments Prior to Arrival: none - Related Data Home Medications Medication Instructions Recorded Confirmed Aspirin 81 mg PO DAILY 03/18/16 09/24/16 Calcium Carbonate/Vitamin D3 1 each PO DAILY 09/24/16 09/24/16 [Calcium 600-Vit D3 200 Tablet] Previous Rx's Medication Instructions Recorded Ciprofloxacin HCl [Cipro] 500 mg PO BID #14 tablet 09/26/16 Cyanocobalamin (B-12) [Vitamin B12] 1,000 mcg PO DAILY #90 tablet 09/26/16 Docusate [Colace] 100 mg PO BID PRN #60 capsule 09/26/16 Ergocalciferol (VITAMIN D2) 50,000 unit PO QWEEK #20 capsule 09/26/16 [Drisdol (50,000 Unit)] Thiamine (B-1) [Vitamin B-1] 200 mg PO DAILY #90 tablet 09/26/16 Nitrofurantoin (BID) [Macrobid] 100 mg PO BID #14 capsule 10/27/16 Allergies Allergy/AdvReac Type Severity Reaction Status Date / Time No Known Allergies Allergy Verified 10/27/16 13:33 Limitations: ROS unobtainable due to patients medical condition Past Medical History - Past Medical History Attestation: Yes The following information was validated with the patient. Source: patient Medical history: Reports: dementia Surgical history: Reports: no surgical history Psychiatric history: Reports: no psych history TRAVEL CLERK history: Reports: no TRAVEL CLERK history - Social History Smoking Status: Never smoker Smokeless Tobacco Status: No Alcohol use: Reports: occasionally Drug use: Reports: none Physical Exam - General Limitations: altered mental status General appearance: alert, in no apparent distress, lethargic - Head Head exam: atraumatic, normocephalic, normal inspection - Eye Eye exam: Present: normal appearance, PERRL, EOMI - ENT ENT exam: normal exam, normal oropharynx, mucous membranes moist - Neck Neck exam: Present: normal inspection, full ROM, trachea midline - Chest Chest inspection: Present: normal inspection, symmetric chest wall rise - Respiratory Respiratory exam: Present: normal lung sounds bilaterally - Cardiovascular Cardiovascular exam: Present: normal rhythm, tachycardia - Abdominal Exam Abdominal exam: Present: soft, Non-Tender. Absent: tenderness, distention, guarding, rebound, rigidity - Extremities Exam Extremities exam: Present: normal inspection, full ROM. Absent: tenderness, pedal edema - Back Exam Back exam: Present: normal inspection, full ROM. Absent: tenderness - Neurological Exam Neurological exam: Present: other (Somnolent, arousable, does not follow all commands, speaking nonsensical) - Psychiatric Psychiatric exam: Present: normal affect, normal mood - Skin Skin exam: Present: warm, dry, intact, normal color Course Course Narrative: Patient seen and examined. Generalized weakness, altered mental status, recent diagnosis of urinary tract infection. Patient is tachycardic on exam. Concern for sepsis. Sepsis workup initiated. Altered mental status workup initiated. CT of the head and chest x-ray ordered. - Reevaluation(s) Reevaluation #1: Patient does have a leukocytosis of 16, we will go ahead and treat with a dose of Rocephin. We will admit for altered mental status and urinary tract infection. IV Rocephin ordered. I spoke with hospitalist Dr. Spencer who has accepted patient for admission. Patient's does stress that patient is a fall risk. Especially if she gets up in the middle of the night, he is worried about her falling. She will need to be admitted with fall precautions. Time: 19:00 Reevaluation #2: Patient's EKG does show what appears to be atrial fibrillation with RVR. We will go ahead and start patient on Cardizem and cardizem drip. Will notify hospitalist. Time: 19:52 Vital Signs Temperature 98.3 F 11/03/16 16:32 Pulse Rate 125 11/03/16 16:32 Respiratory Rate 26 11/03/16 16:32 Blood Pressure 154/82 11/03/16 16:32 O2 Sat by Pulse Oximetry 100 11/03/16 16:32 Temperature 98.3 F 11/03/16 16:32 Pulse Rate 125 11/03/16 17:12 Respiratory Rate 26 11/03/16 17:12 Blood Pressure 152/103 11/03/16 17:12 O2 Sat by Pulse Oximetry 99 11/03/16 17:12 Oxygen Delivery Oxygen Delivery Room Air Medical Decision Making - Medical Records Medical records reviewed: Yes I reviewed the patient's medical records. - Lab Data Lab results reviewed: Yes I reviewed the patient's lab results. Result diagrams: 11/03/16 17:29 11/03/16 17:29 Lab Results 11/03/16 11/03/16 11/03/16 Range/Units 16:38 17:29 17:29 WBC 16.7 H (4.3-11.1) K/mcL RBC 4.41 (3.82-4.97) M/mcL Hgb 14.4 (11.5-15.4) g/dL Hct 42.2 (35.3-44.9) % MCV 95.7 (83.0-100.0) fL MCH 32.7 (28.0-33.3) pg MCHC 34.1 (31.6-35.5) g/dL RDW 12.3 (11.5-14.5) % Plt Count 215 (140-400) K/mcL MPV 8.7 L (9.4-12.4) fL Immature Gran % 0.5 (0-4) % Seg Neutrophils % 90.8 % Lymphocytes % 2.6 % Monocytes % 5.3 % Eosinophils % 0.6 % Basophils % 0.2 % Neutrophils # 15.2 H (1.6-8.9) K/mcL Lymphocytes # 0.4 L (0.6-4.6) K/mcL Monocytes # 0.9 (0.0-1.3) K/mcL Eosinophils # 0.1 (0.0-0.6) K/mcL Basophils # 0.0 (0.0-0.2) K/mcL PT 11.8 (9.4-12.1) Seconds INR 1.1 APTT 27.9 (26.0-36.0) Seconds Sodium (136-145) mEq/L Potassium (3.5-4.5) mEq/L Chloride (98-109) mEq/L Carbon Dioxide (19-29) mEq/L BUN (7-20) mg/dL Creatinine (0.57-1.11) mg/dL Est GFR ( Amer) (> 60) Est GFR (Non-Af Amer) (> 60) BUN/Creatinine Ratio (6-26) Glucose (70-99) mg/dL POC Glucose 116 H (58-89) Calculated Osmolality (280-300) Lactic Acid (0.5-2.2) mmol/L Calcium (8.6-10.8) mg/dL Total Bilirubin (0.2-1.2) mg/dL Direct Bilirubin (0.0-0.5) mg/dL Indirect Bilirubin (0.0-1.2) mg/dL AST (5-34) Units/L ALT (0-55) Units/L Alkaline Phosphatase (38-126) Units/L Troponin I (0-0.03) ng/mL Serum Total Protein (6.0-8.3) g/dL Albumin (3.5-5.0) g/dL Globulin (2.4-3.5) g/dL Albumin/Globulin Ratio (1.1-2.2) Amylase (25-125) Units/L Lipase (8-78) Units/L Urine Color (Yellow) Urine Clarity (Clear) Urine pH (5.0-8.0) pH Units Ur Specific [place] (1.010-1.025) Urine Protein (Neg-Trace) mg/dL Urine Glucose (UA) (Normal) mg/dL Urine Ketones (Negative) mg/dL Urine Blood (Negative) Urine Nitrite (Negative) Urine Bilirubin (Negative) Urine Urobilinogen (Normal) mg/dL Ur Leukocyte Esterase (Negative) Urine Microscopic RBC (0-3) per hpf Urine Microscopic WBC (0-3) per hpf Ur Squamous Epith Cells (None-Few) per lpf Urine Bacteria (None-Few) per hpf Hyaline Casts (None-Few) per lpf Ur Culture Indicated? (NO) 11/03/16 11/03/16 11/03/16 Range/Units 17:29 17:29 17:29 WBC (4.3-11.1) K/mcL RBC (3.82-4.97) M/mcL Hgb (11.5-15.4) g/dL Hct (35.3-44.9) % MCV (83.0-100.0) fL MCH (28.0-33.3) pg MCHC (31.6-35.5) g/dL RDW (11.5-14.5) % Plt Count (140-400) K/mcL MPV (9.4-12.4) fL Immature Gran % (0-4) % Seg Neutrophils % % Lymphocytes % % Monocytes % % Eosinophils % % Basophils % % Neutrophils # (1.6-8.9) K/mcL Lymphocytes # (0.6-4.6) K/mcL Monocytes # (0.0-1.3) K/mcL Eosinophils # (0.0-0.6) K/mcL Basophils # (0.0-0.2) K/mcL PT (9.4-12.1) Seconds INR APTT (26.0-36.0) Seconds Sodium 134 L (136-145) mEq/L Potassium 3.4 L (3.5-4.5) mEq/L Chloride 102 (98-109) mEq/L Carbon Dioxide 17 L (19-29) mEq/L BUN 8 (7-20) mg/dL Creatinine 0.67 (0.57-1.11) mg/dL Est GFR ( Amer) > 60 (> 60) Est GFR (Non-Af Amer) > 60 (> 60) BUN/Creatinine Ratio 12 (6-26) Glucose 125 H (70-99) mg/dL POC Glucose (58-89) Calculated Osmolality 278 L (280-300) Lactic Acid 1.4 (0.5-2.2) mmol/L Calcium 9.2 (8.6-10.8) mg/dL Total Bilirubin 1.1 (0.2-1.2) mg/dL Direct Bilirubin 0.4 (0.0-0.5) mg/dL Indirect Bilirubin 0.7 (0.0-1.2) mg/dL AST 20 (5-34) Units/L ALT 8 (0-55) Units/L Alkaline Phosphatase 65 (38-126) Units/L Troponin I 0.02 (0-0.03) ng/mL Serum Total Protein 6.9 (6.0-8.3) g/dL Albumin 3.9 (3.5-5.0) g/dL Globulin 3.0 (2.4-3.5) g/dL Albumin/Globulin Ratio 1.3 (1.1-2.2) Amylase 20 L (25-125) Units/L Lipase 6 L (8-78) Units/L Urine Color (Yellow) Urine Clarity (Clear) Urine pH (5.0-8.0) pH Units Ur Specific [place] (1.010-1.025) Urine Protein (Neg-Trace) mg/dL Urine Glucose (UA) (Normal) mg/dL Urine Ketones (Negative) mg/dL Urine Blood (Negative) Urine Nitrite (Negative) Urine Bilirubin (Negative) Urine Urobilinogen (Normal) mg/dL Ur Leukocyte Esterase (Negative) Urine Microscopic RBC (0-3) per hpf Urine Microscopic WBC (0-3) per hpf Ur Squamous Epith Cells (None-Few) per lpf Urine Bacteria (None-Few) per hpf Hyaline Casts (None-Few) per lpf Ur Culture Indicated? (NO) 11/03/16 Range/Units 18:25 WBC (4.3-11.1) K/mcL RBC (3.82-4.97) M/mcL Hgb (11.5-15.4) g/dL Hct (35.3-44.9) % MCV (83.0-100.0) fL MCH (28.0-33.3) pg MCHC (31.6-35.5) g/dL RDW (11.5-14.5) % Plt Count (140-400) K/mcL MPV (9.4-12.4) fL Immature Gran % (0-4) % Seg Neutrophils % % Lymphocytes % % Monocytes % % Eosinophils % % Basophils % % Neutrophils # (1.6-8.9) K/mcL Lymphocytes # (0.6-4.6) K/mcL Monocytes # (0.0-1.3) K/mcL Eosinophils # (0.0-0.6) K/mcL Basophils # (0.0-0.2) K/mcL PT (9.4-12.1) Seconds INR APTT (26.0-36.0) Seconds Sodium (136-145) mEq/L Potassium (3.5-4.5) mEq/L Chloride (98-109) mEq/L Carbon Dioxide (19-29) mEq/L BUN (7-20) mg/dL Creatinine (0.57-1.11) mg/dL Est GFR ( Amer) (> 60) Est GFR (Non-Af Amer) (> 60) BUN/Creatinine Ratio (6-26) Glucose (70-99) mg/dL POC Glucose (58-89) Calculated Osmolality (280-300) Lactic Acid (0.5-2.2) mmol/L Calcium (8.6-10.8) mg/dL Total Bilirubin (0.2-1.2) mg/dL Direct Bilirubin (0.0-0.5) mg/dL Indirect Bilirubin (0.0-1.2) mg/dL AST (5-34) Units/L ALT (0-55) Units/L Alkaline Phosphatase (38-126) Units/L Troponin I (0-0.03) ng/mL Serum Total Protein (6.0-8.3) g/dL Albumin (3.5-5.0) g/dL Globulin (2.4-3.5) g/dL Albumin/Globulin Ratio (1.1-2.2) Amylase (25-125) Units/L Lipase (8-78) Units/L Urine Color Yellow (Yellow) Urine Clarity Clear (Clear) Urine pH 7.0 (5.0-8.0) pH Units Ur Specific [place] 1.015 (1.010-1.025) Urine Protein Negative (Neg-Trace) mg/dL Urine Glucose (UA) Normal (Normal) mg/dL Urine Ketones 80 H (Negative) mg/dL Urine Blood Large H (Negative) Urine Nitrite Negative (Negative) Urine Bilirubin Negative (Negative) Urine Urobilinogen Normal (Normal) mg/dL Ur Leukocyte Esterase Negative (Negative) Urine Microscopic RBC 30-50 H (0-3) per hpf Urine Microscopic WBC 0-3 (0-3) per hpf Ur Squamous Epith Cells Many H (None-Few) per lpf Urine Bacteria None Seen (None-Few) per hpf Hyaline Casts None Seen (None-Few) per lpf Ur Culture Indicated? NO (NO) - Radiology Data Radiology results reviewed: Yes I reviewed the patient's radiology results. Head CT 11/03/16 17:43 IMPRESSION: No acute intracranial abnormality. Moderate generalized volume loss and findings likely related to chronic small vessel disease. D/ / Dorothy Rushing MD / Dorothy Rushing MD Interpreting Provider: Dorothy Rushing MD - EKG Data EKG #1 EKG attestation: Yes I reviewed and interpreted this EKG. EKG results narrative: EKG done at 1635 shows atrial fibrillation with RVR with a rate of 123 beats per minute. Poor quality EKG with wandering baseline. No acute ST elevation. Mild ST depression in lead 1
[2016-11-03] MEDS ORDERED: Ondansetron 4 MG/2 ML VIAL IVP ONE (20:00)
--- NOTE | 2016-11-03 20:55 | Internal Med History&Physical ---
<Elias Vizcaino - Last Filed: 11/03/16 21:55> Date of Encounter: 11/03/16 Time of Encounter: 20:30 Assessment and Plan (1) Sepsis Current visit: Yes Status: Acute Patient has severe sepsis with tachycardia, tachypnea, leukocytosis, and AMS. Current suspected source of infection is either from a pneumonia (suspect aspiration) or ascended urinary source (given recent UTIs and possibly inadequately treated prior infection). Though if no source is not found would have to consider looking for other sources. Consider LP is no other sources of infection located Patient received 2 L normal saline in the ER, will continue fluids at 100 ml/hr Will obtain USD with salicylate level Will obtain CT-Chest to better visualize potential pneumonia Bedside swallow evaluation Obtain sputum culture Blood Cultures x2 Vancomycin - previous UTI with staph hominis was resistant to many antibiotics and she had previously had a course of nitrofurantoin. Zosyn - Concern for possible aspiration pneumonia and will also cover for other postential gram negative organisms that would not be convered by the Vanco Will obtain TSH and another lactate We will obtain additional UA after placement of [place] Qualifiers: Sepsis type: sepsis due to unspecified organism Qualified Code(s): A41.9 - Sepsis, unspecified organism (2) Acute encephalopathy Current visit: No Status: Acute Patient acute encephalopathy is likely due to her sepsis, either from a possible pneumonia or from a urinary source that has ascended. Though if no source is identified as above will have to consider other sources of infection ( [employer] for instance). Plan as above (3) Metabolic acidosis Current visit: Yes Status: Acute Patient has decreased CO2 seen on chemistry and an anion gap of 15. Her increased anion gap metabolic acidosis is mild, but a current cause is unknown. She is septic from either a ascending urine source, pneumonia, or both. We are currently not suspecting that this is coming from an ingestion, her BUN is normal, no history of diabetes and sugar is normal, and lactate is normal ( currently). Will obtain a UDS with salicylate level Will recheck lactate as above Plan as above (4) Pneumonia Current visit: No Status: Acute CXR does show some suspicious left basilar opacification (with streaky character ). This could possible represent a pneumonia, suspecting aspiration due to concern of progressive AMS that has been developing. Plan as above Qualifiers: Pneumonia type: due to unspecified organism Laterality: bilateral Lung location: lower lobe of lung Qualified Code(s): J18.9 - Pneumonia, unspecified organism (5) UTI (urinary tract infection) Current visit: Yes Status: Acute Although patient's current UA does not show any bacteria, leuk esterase, or nitrites there is concern because she was recently treated for a UTI with macrobid, but also her previously documented UTI on 09/24/16 showed staph hominis that was resistant to many different antibiotics (and was treated with Cipro at that time, fluorquiolones were not tested at that time). So there remains concern that the previous UTI that she had was never adequately treated. Plan as above Qualifiers: Urinary tract infection type: site unspecified Hematuria presence: with hematuria Qualified Code(s): N39.0 - Urinary tract infection, site not specified; R31.9 - Hematuria, unspecified (6) DVT prophylaxis Current visit: No Status: Acute Will start 5000 u heparin SQ TID Internal Medicine - H&P: HPI Chief complaint: Altered Mental Status Admitted From: Home Plans for Post Hospital Care: Home History of present illness: Ms. Haynes is a 76 year old female with prior medical history of dementia, prior UTIs, and lung nodule was brought to air see by her due to progressively worsening altered mental status over the last week. was not present and patient was unable to provide history, social history obtained was through chart review. Patient was treated one week ago for urinary tract infection with nitrofurantoin, but has had progressively greater altered mentation in the last week. This antibiotic was chosen because her prior UTI from 09/24/16 was staph hominis with multiple resistances (but sensitive to Macrobid). She was also found on chest x-ray to have a streaky opacification in the lower left lobe, could represent pneumonia. If she has been progressively altered for last week, this may represent an aspiration, but currently unknown. Current urinalysis shows blood, but no leukocyte esterase, no nitrates, no bacteria. Past Med Surg Social Fam HX - Past Medical History Medical history: dementia Psychiatric history: no psych history - Past Surgical History Surgical History: no surgical history - Social History Smoking Status: Never smoker Smokeless Tobacco Status: No Alcohol use: occasionally Drug use: none - Family History Mother Living Status: Father Living Status: Internal Medicine - H&P: Meds Aspirin 81 mg PO DAILY 03/18/16 [History] Calcium Carbonate/Vitamin D3 [Calcium 600-Vit D3 200 Tablet] 1 each PO DAILY [History] Ciprofloxacin HCl [Cipro] 500 mg PO BID #14 tablet 09/26/16 [Rx] Cyanocobalamin (B-12) [Vitamin B12] 1,000 mcg PO DAILY #90 tablet 09/26/16 [Rx] Docusate [Colace] 100 mg PO BID PRN #60 capsule 09/26/16 [Rx] Ergocalciferol (VITAMIN D2) [Drisdol (50,000 Unit)] 50,000 unit PO QWEEK #20 capsule 09/26/16 [Rx] Thiamine (B-1) [Vitamin B-1] 200 mg PO DAILY #90 tablet 09/26/16 [Rx] Nitrofurantoin (BID) [Macrobid] 100 mg PO BID #14 capsule 10/27/16 [Rx] Allergies No Known Allergies Allergy (Verified 10/27/16 13:33) ROS unobtainable: due to mental status - Constitutional Vitals: Temp Pulse Resp BP Pulse Ox 98.3 F 82 24 149/64 93 11/03/16 16:32 11/03/16 20:20 11/03/16 20:20 11/03/16 20:20 11/03/16 20:20 Exam: General: no acute distress, alert and oriented 1 Head: Normocephalic, atraumatic Eye: Conjunctiva pink, sclera anicteric, EOMI, PERRL Neck: Supple, trachea midline, mucosa dry Respiratory: No accessory muscle usage, difficult to auscultate due to patient position and movement Cardiovascular: Regular rate and rhythm, S1 and S2 present, no murmurs/rubs/ gallops/clicks appreciated GI/abdominal: Nondistended, nontender, soft, normal bowel sounds, no peritoneal signs Extremities: No calf tenderness, noncyanotic, no pedal edema appreciated, warm, lower extremity pulses palpable and symmetrical Neurological: Alert and oriented 1, no facial droop, no focal deficits Skin: Dry, intact, normal color Internal Med - H&P Results - Labs CBC & Chem 7: 11/03/16 17:29 11/03/16 17:29 - EKG Data -: EKG Interpreted by Myself Rate: tachycardia - EKG Data Prior EKG available for review: yes When compared to previous EKG: there is no significant change - Impressions Impressions Head CT 11/03/16 17:43 IMPRESSION: No acute intracranial abnormality. Moderate generalized volume loss and findings likely related to chronic small vessel disease. D/ / Dorothy Rushing MD / Dorothy Rushing MD Interpreting Provider: Dorothy Rushing MD Chest X-Ray 11/03/16 18:39 IMPRESSION: Mild left basilar opacity which appears slightly streaky. Findings may represent atelectasis, edema, or infection D/ / Dorothy Rushing MD / Dorothy Rushing MD Interpreting Provider: Dorothy Rushing MD <Damon Barnes - Last Filed: 11/03/16 22:59> Date of Encounter: 11/03/16 Internal Medicine - H&P: HPI History of present illness: Ms. Haynes is a 76 year old female [employer] PM: A 10-system review of systems was performed and is negative for pertinent findings except as documented above in the HPI. - Constitutional Vitals: Temp Pulse Resp BP Pulse Ox 102.9 F H 84 17 128/59 94 11/03/16 21:33 11/03/16 21:33 11/03/16 21:33 11/03/16 21:33 11/03/16 21:33 Internal Med - H&P Results - Labs CBC & Chem 7: 11/03/16 17:29 11/03/16 17:29 - Attending Attestation I examined this patient and my medical decision-making was reviewed with the TRACK MANAGER/PA/Advanced Practice Nurse/Resident Physician. I agree with the documented findings, disposition and treatment plan as described except to the extent set forth below. Agree with DR. Vizcaino. Sepsis, broad spectrum antibiotics. Fluid therapy.
[2016-11-03] MEDS ORDERED: Naloxone 0.4 MG/ML INJ IVP PRN (21:02)
[2016-11-03] MEDS ORDERED: Ondansetron 4 MG/2 ML VIAL IVP PRN (21:02)
[2016-11-03] MEDS ORDERED: Potassium Chloride 40 MEQ, Lidocaine 1% 2 ML in D5% in Water 500 ML IVPB ONE (21:47)
[2016-11-03] MEDS ORDERED: Vancomycin 750 MG in D5% in Water 250 ML IVPB SCH (22:00)
[2016-11-03 22:12] LABS: Salicylate < 5.0 mg/dL (15-30)
[2016-11-03] MEDS ORDERED: Vancomycin 1,000 MG in D5% in Water 250 ML IVPB ONE (22:15)
[2016-11-03 22:31] LABS: Thyroid Stimulating Hormone 0.653 mcIU/mL (0.350-4.840)
[2016-11-03] MEDS: 0.9 % Sodium Chloride 1,000 ML IVC SCH (22:56)
[2016-11-03] MEDS: *HR* Heparin 5,000 UNIT/ML VIAL SQ SCH (22:57)
[2016-11-04] MEDS: Piperacillin/Tazobactam 3.375 GM in D5% in Water (Mini-Bag+) 100 ML IVPB SCH ×3 (01:07→16:12)
[2016-11-04 01:47] LABS: Bilirubin,Urine Negative (Negative); Blood,Urine Large (Negative); Clarity,Urine Clear (Clear); Color,Urine Yellow (Yellow); Glucose,Urine (UA) 500 mg/dL (Normal); Ketones,Urine 80 mg/dL (Negative); Leukocyte Esterase,Urine Negative (Negative); Nitrite,Urine Negative (Negative); Protein,Urine 30 mg/dL (Neg-Trace); Specific Gravity,Urine > 1.030 (1.010-1.025); Urobilinogen,Urine Normal (Normal)
[2016-11-04 01:49] LABS: Bacteria,Urine None Seen per hpf (None-Few); Hyaline Casts,Urine None Seen per lpf (None-Few); RBC,Urine 50-100 per hpf (0-3); Squamous Epithelial Cell,Urine Many per lpf (None-Few)
[2016-11-04 01:54] LABS: Amphetamine Screen,Urine Negative ng/mL (Cutoff=1000); Barbiturate Screen,Urine Negative ng/mL (Cutoff=200); Benzodiazepines Screen,Urine Negative ng/mL (Cutoff=200); Cannabinoid Screen,Urine Negative ng/mL (Cutoff = 50); Cocaine Screen,Urine Negative ng/mL (Cutoff= 300); Opiate Screen,Urine Negative ng/mL (Cutoff=300); Phencyclidine Screen,Urine Negative ng/mL (Cutoff=25)
[2016-11-04] MEDS ORDERED: 0.9 % Sodium Chloride 500 ML IVC ONE (02:03)
[2016-11-04 03:03] LABS: Adenovirus Not Detected (Not Detect); Bordetella Pertussis Not Detected (Not Detect); Chlamydophila pneumoniae Not Detected (Not Detect); Coronavirus 229E Not Detected (Not Detect); Coronavirus HKU1 Not Detected (Not Detect); Coronavirus NL63 Not Detected (Not Detect); Coronavirus OC43 Not Detected (Not Detect); Human Metapneumovirus Not Detected (Not Detect); Human Rhinovirus/Enterovirus Not Detected (Not Detect); Influenza A Subtype 2009 H1 Not Detected (Not Detect); Influenza A Untypeable Not Detected (Not Detect); Influenza B Not Detected (Not Detect); Mycoplasma pneumoniae Not Detected (Not Detect); Parainfluenza Virus 1 Not Detected (Not Detect); Parainfluenza Virus 2 Not Detected (Not Detect); Parainfluenza Virus 3 Not Detected (Not Detect); Parainfluenza Virus 4 Not Detected (Not Detect); Respiratory Syncytial Virus Not Detected (Not Detect)
[2016-11-04 03:44] LABS: Hemoglobin 13.6 g/dL (11.5-15.4); Mean Corpuscular HGB Conc 35.8 g/dL (31.6-35.5); Mean Corpuscular Hemoglobin 33.2 pg (28.0-33.3); Mean Corpuscular Volume 92.7 fL (83.0-100.0); Mean Platelet Volume 10.2 fL (9.4-12.4); Platelet Count 173 K/mcL (140-400); Red Cell Distribution Width 12.7 % (11.5-14.5)
[2016-11-04 03:47] LABS: BUN/Creatinine Ratio 13 (6-26); Blood Urea Nitrogen 9 mg/dL (7-20); Carbon Dioxide 14 mEq/L (19-29); Chloride 104 mEq/L (98-109); Glucose 223 mg/dL (70-99); Magnesium 1.6 mg/dL (1.6-2.6); Osmolality,Calculated 276 (280-300); Phosphorous 1.7 mg/dL (2.3-4.7); Sodium 130 mEq/L (136-145); eGFR For African Americans > 60 (> 60); eGFR For Non-African Americans > 60 (> 60)
[2016-11-04 03:49] LABS: Potassium 4.1 mEq/L (3.5-4.5)
[2016-11-04 04:25] LABS: Lymphocytes # 1.1 K/mcL (0.6-4.6); Monocytes # 2.3 K/mcL (0.0-1.3); Neutrophils # 24.7 K/mcL (1.6-8.9); Platelet Estimate Normal (Normal)
[2016-11-04] MEDS ORDERED: Magnesium Sulfate 2 GM in D5% in Water 100 ML IVPB ONE (05:12)
[2016-11-04] MEDS: *HR* Heparin 5,000 UNIT/ML VIAL SQ SCH ×3 (05:45→23:00)
[2016-11-04] MEDS: Acetaminophen 325 MG TABLET PO PRN ×2 (05:51→12:47)
--- NOTE | 2016-11-04 08:08 | Electrocardiograph Report ---
[address] [place] [address] Test Date: 2016-11-03 Pat Name: Beba Haynes Department: 104 Room: 2A11 Gender: F Layer Out Plate Glass: [facility] : 1940 Requested By: Honorio Cuellar Order Number: [id number] Reading MD: Reilly Bryant MD Measurements Intervals [place] Rate: 117 P: ID: 0 QRS: 6 QRSD: 98 T: -18 QT: 291 QTc: 360 Interpretive Statements ATRIAL FIBRILLATION WITH RAPID VENTRICULAR RESPONSE Electronically Signed On 11-04-2016 8:06:25 EDT by Reilly Bryant MD
[2016-11-04] MEDS: Ampicillin 2 GM in 0.9 % Sodium Chloride Mini Bag 100 ML IVPB SCH ×4 (08:23→20:55)
[2016-11-04] MEDS: 0.9 % Sodium Chloride 1,000 ML IVC SCH ×3 (08:28→20:55)
[2016-11-04] MEDS ORDERED: Pantoprazole 40 MG VIAL IVP SCH (09:00)
--- NOTE | 2016-11-04 11:48 | Electrocardiograph Report ---
[address] [place] [address] Test Date: 2016-11-03 Pat Name: Beba Haynes Department: 103 Room: 2A11 Gender: F Bond Manager: : 1940 Requested By: Laney Sheridan Order Number: [id number] Reading MD: Carin Cui Measurements Intervals [place] Rate: 123 P: [place]: 0 QRS: 24 QRSD: 90 T: -40 QT: 240 QTc: 313 Interpretive Statements ATRIAL FIBRILLATION WITH RAPID VENTRICULAR RESPONSE NONSPECIFIC ST \T\ T-WAVE ABNORMALITY Electronically Signed On 11-04-2016 11:46:55 EDT by Carin Cui
--- NOTE | 2016-11-04 12:23 | Internal Med Progress Note ---
Date of Encounter: 11/04/16 Time of Encounter: 12:18 - Assessment and plan (1) Sepsis Current Visit: Yes Status: Acute Assessment and plan: unclear source,does have h/o recurrent UTI in the past. ua sent yesterday looks clear, blood and urine cx has been sent. CT chest shows b/l opacities possible atelectasis vs pneumonia, clinically less likely pneumonia with no cough or chest pain. denies abdominal pain, n,v,d given the possibility of REROLLER HAND infection, will order LP> will continue IV antibiotics and good Zosyn and ampicillin to provide broader coverage. We will follow blood cultures and urine cultures along with culture of the spinal fluid. Currently hemodynamically stable. lactic acid 2.0 today. Drug screen along with viral serology panel is negative. Qualifiers: Sepsis type: sepsis due to unspecified organism Qualified Code(s): A41.9 - Sepsis, unspecified organism (2) Dementia Current Visit: No Status: Chronic Assessment and plan: Has baseline mild dementia as per the , and does not have functional disability from that. as per the family, she was eating and drinking and talking normally. Qualifiers: Dementia type: Alzheimer's disease Alzheimer's disease onset: early-onset Dementia behavioral disturbance: with behavioral disturbance Qualified Code( s): G30.0 - Alzheimer's disease with early onset; F02.81 - Dementia in other diseases classified elsewhere with behavioral disturbance - Time Spent With Patient 25 - 35 minutes - Subjective Interval history: seen at the bedside, who presented with decreased responsiveness for 1 day. appears septic, unclear source. has h/o recurrent UTI and has recently treated with macrobid and cipro which she has completed. had fever spike of 101-102 last night and has worsening leucocytosis today. patient appears drowsy but follows commands and is able to give yes/no answers. - Constitutional Vitals: Temp Pulse Resp BP Pulse Ox 97.5 F L 74 16 99/61 98 11/04/16 10:08 11/04/16 10:08 11/04/16 10:08 11/04/16 10:08 11/04/16 10:08 General appearance: Present: A&O X 3, no acute distress Exam: General: no acute distress, alert and oriented 1 Head: Normocephalic, atraumatic. Eye: Conjunctiva pink, sclera anicteric, EOMI, PERRL Neck: Supple, trachea midline, mucosa dry Respiratory: b/l decreased breath sounds on the bases, no wheezing. Cardiovascular: Regular rate and rhythm, S1 and S2 present, no murmurs/rubs/ gallops/clicks appreciated GI/abdominal: Nondistended, nontender, soft, normal bowel sounds, no peritoneal signs Extremities: No calf tenderness, noncyanotic, no pedal edema appreciated, warm, lower extremity pulses palpable and symmetrical Neurological: Alert and oriented 1, no facial droop, no focal deficits Skin: Dry, intact, normal color Internal Medicine: Result - Labs CBC & Chem 7: 11/04/16 02:55 11/04/16 02:55 Labs: Short CBC 11/04/16 Range/Units 02:55 WBC 28.1 H D (4.3-11.1) K/mcL Hgb 13.6 (11.5-15.4) g/dL Hct 38.0 (35.3-44.9) % Plt Count 173 (140-400) K/mcL Neutrophils # 24.7 H (1.6-8.9) K/mcL BMP 11/04/16 02:55 Sodium 130 L Potassium 4.1 Chloride 104 Carbon Dioxide 14 L BUN 9 Creatinine 0.70 Glucose 223 H Calcium 8.0 L Urine 11/04/16 Range/Units 01:35 Urine Color Yellow (Yellow) Urine Clarity Clear (Clear) Urine pH 6.0 (5.0-8.0) pH Units Ur Specific [place] > 1.030 H (1.010-1.025) Urine Protein 30 H (Neg-Trace) mg/dL Urine Glucose (UA) 500 H (Normal) mg/dL - ABG Interpretation ABG results: PT/INR, D-dimer PT 11.8 Seconds (9.4-12.1) 11/03/16 17:29 Consult Discharge Plan - Plan Referrals: Ferny Barr MD [Primary Care Provider] - 11/07/16 1:00 pm (Please follow up as schedule...)
[2016-11-04] MEDS ORDERED: Sodium Phosphate 30 MMOL in D5% in Water 100 ML IVPB ONE (12:30)
[2016-11-04] MEDS ORDERED: Calcium Gluconate 1,000 MG in D5% in Water 100 ML IVPB ONE (12:30)
[2016-11-04] MEDS ORDERED: Acetaminophen IV 500 MG/50 ML INFUS..BTL IVPB ONE (12:59)
[2016-11-04 13:03] LABS: Glucose,CSF 107 mg/dL (40-70); Total Protein,CSF 14 mg/dL (15-45)
[2016-11-04 13:12] LABS: Red Blood Cell,CSF < 0.002 M/mcL
[2016-11-04 14:03] LABS: Appearance,CSF Clear (Clear)
[2016-11-04] MEDS ORDERED: Vancomycin 750 MG in D5% in Water 250 ML IVPB SCH (22:00)
[2016-11-04] MEDS: Vancomycin 1,000 MG in D5% in Water 250 ML IVPB SCH (23:01)
[2016-11-05] MEDS: Piperacillin/Tazobactam 3.375 GM in D5% in Water (Mini-Bag+) 100 ML IVPB SCH ×4 (00:34→23:56)
[2016-11-05] MEDS: Ampicillin 2 GM in 0.9 % Sodium Chloride Mini Bag 100 ML IVPB SCH ×4 (00:35→12:34)
[2016-11-05] MEDS: *HR* Heparin 5,000 UNIT/ML VIAL SQ SCH ×3 (06:02→22:30)
[2016-11-05] MEDS: 0.9 % Sodium Chloride 1,000 ML IVC SCH ×2 (07:57→14:18)
[2016-11-05] MEDS: Pantoprazole 40 MG VIAL IVP SCH (07:59)
[2016-11-05 08:56] LABS: Basophils % 0.2 %; Eosinophils # 0.5 K/mcL (0.0-0.6); Eosinophils % 4.2 %; Hematocrit 35.2 % (35.3-44.9); Hemoglobin 12.2 g/dL (11.5-15.4); Immature Granulocytes % 0.6 % (0-4); Lymphocytes # 0.5 K/mcL (0.6-4.6); Lymphocytes % 4.6 %; Mean Corpuscular HGB Conc 34.7 g/dL (31.6-35.5); Mean Corpuscular Hemoglobin 32.1 pg (28.0-33.3); Mean Corpuscular Volume 92.6 fL (83.0-100.0); Mean Platelet Volume 9.2 fL (9.4-12.4); Monocytes # 0.8 K/mcL (0.0-1.3); Monocytes % 6.5 %; Neutrophils # 9.8 K/mcL (1.6-8.9); Platelet Count 167 K/mcL (140-400); Red Cell Distribution Width 12.8 % (11.5-14.5); Segmented Neutrophils % 83.9 %
[2016-11-05 09:07] LABS: BUN/Creatinine Ratio 23 (6-26); Blood Urea Nitrogen 12 mg/dL (7-20); Calcium 7.6 mg/dL (8.6-10.8); Carbon Dioxide 19 mEq/L (19-29); Chloride 108 mEq/L (98-109); Glucose 102 mg/dL (70-99); Magnesium 1.8 mg/dL (1.6-2.6); Osmolality,Calculated 280 (280-300); Phosphorous 1.3 mg/dL (2.3-4.7); Potassium 3.2 mEq/L (3.5-4.5); Sodium 135 mEq/L (136-145); eGFR For African Americans > 60 (> 60); eGFR For Non-African Americans > 60 (> 60)
[2016-11-05 09:13] LABS: Platelet Estimate Normal (Normal)
[2016-11-05] MEDS ORDERED: Potassium Phosphate 44 MEQ in 0.9 % Sodium Chloride 250 ML IVPB ONE (10:48)
[2016-11-05] MEDS: D5 IVPB SCH ×2 (12:33→18:17)
[2016-11-05] MEDS: WATER IVPB SCH ×2 (12:33→18:17)
[2016-11-05] MEDS: ACYCLOVIR IVPB SCH ×2 (12:33→18:17)
--- NOTE | 2016-11-05 14:58 | Internal Med Progress Note ---
Date of Encounter: 11/05/16 Time of Encounter: 10:55 - Assessment and plan (1) Sepsis Current Visit: Yes Status: Acute Assessment and plan: CT abd/pelvis consistent with pyelonephritis and Pneumonia LP negative but cannot rule out viral etiology started Acyclovir will continue Vancomycin and Zosyn D/C ampicillin will f/u CSF fluid analysis serologies f/u blood cultures Clinically improving with improvement in Leukocytosis and mental status will continue IV fluids Will repeat cultures if becomes febrile Qualifiers: Sepsis type: sepsis due to unspecified organism Qualified Code(s): A41.9 - Sepsis, unspecified organism (2) Electrolyte abnormality Current Visit: Yes Status: Acute Assessment and plan: Hypokalemia and hypophosphatemia K and Phos supplemented continue to monitor electrolytes and replace as needed (3) Dementia Current Visit: No Status: Chronic Assessment and plan: Has baseline mild dementia as per the , and does not have functional disability from that. as per the family, she was eating and drinking and talking normally. Mental status improved from previous day but not currently at baseline Will continue to monitor Qualifiers: Dementia type: Alzheimer's disease Alzheimer's disease onset: early-onset Dementia behavioral disturbance: with behavioral disturbance Qualified Code( s): G30.0 - Alzheimer's disease with early onset; F02.81 - Dementia in other diseases classified elsewhere with behavioral disturbance (4) DVT prophylaxis Current Visit: No Status: Acute Assessment and plan: Heparin SQ - Subjective Interval history: Patient seen and examined with family present at bedside. At baseline patient has underlying dementia and mental status waxes and wanes. At this time as per family, patient's mental status is improved from previous day but is not at baseline. She denies any discomfort at this time. - Constitutional Vitals: Temp Pulse Resp BP Pulse Ox 97.2 F L 90 16 97/61 100 11/05/16 11:11 11/05/16 11:11 11/05/16 11:11 11/05/16 11:11 11/05/16 11:11 General appearance: Present: A&O X 1, no acute distress - Head Head exam: Present: atraumatic, normocephalic - Eye Eye exam: Present: normal appearance, conjuntiva pink, sclera anicteric - Respiratory Respiratory exam: Absent: respiratory distress, wheezes - Cardiovascular Cardiovascular exam: Present: RRR, +S1, +S2. Absent: diastolic murmur, gallop, rubs, systolic murmur - GI/Abdominal GI/Abdominal exam: Present: normal bowel sounds, soft, no peritoneal signs. Absent: distended, tenderness - Extremities Exam Extremities exam: Present: warm, radial pulses palpable and symetrical. Absent : calf tenderness, cyanotic, pedal edema - Neurological Exam Neurological exam: Present: alert - Psychiatric Psychiatric exam: Present: normal affect, normal mood Internal Medicine: Result - Labs CBC & Chem 7: 11/05/16 08:36 11/05/16 08:36 Labs: Short CBC 11/05/16 Range/Units 08:36 WBC 11.7 H D (4.3-11.1) K/mcL Hgb 12.2 (11.5-15.4) g/dL Hct 35.2 L (35.3-44.9) % Plt Count 167 (140-400) K/mcL Neutrophils # 9.8 H (1.6-8.9) K/mcL BMP 11/05/16 08:36 Sodium 135 L Potassium 3.2 L Chloride 108 Carbon Dioxide 19 BUN 12 Creatinine 0.53 L Glucose 102 H Calcium 7.6 L - ABG Interpretation ABG results: PT/INR, D-dimer PT 11.8 Seconds (9.4-12.1) 11/03/16 17:29 - Impressions Impressions Lumbar Puncture Fluoroscopy 11/04/16 00:00 IMPRESSION: 1. Successful fluoroscopic-guided lumbar puncture. D/ / Bert Campbell MD / Bert Campbell MD Interpreting Provider: Bert Campbell MD Abdomen/Pelvis CT 11/04/16 14:30 IMPRESSION: 1. Asymmetric right perinephric stranding not present on the prior abdomen and pelvis CT, potentially due to pyelonephritis. 2. Increased consolidative opacities predominately in the lower lobes, most likely atelectasis given lack air bronchograms. Superimposed pneumonia is not excluded. 3. Trace ascites, increased trace to small bilateral effusions, and minimal anasarca. D/ / Jonathon Faustin MD / Jonathon Faustin MD Interpreting Provider: Jonathon Faustin MD Consult Discharge Plan - Plan Referrals: Ferny Barr MD [Primary Care Provider] - 11/07/16 1:00 pm (Please follow up as schedule...)
[2016-11-05] MEDS: Acetaminophen 325 MG TABLET PO PRN (19:38)
[2016-11-05] MEDS: Vancomycin 1,000 MG in D5% in Water 250 ML IVPB SCH (22:12)
[2016-11-06] MEDS: WATER IVPB SCH ×3 (04:02→19:03)
[2016-11-06] MEDS: D5 IVPB SCH ×3 (04:02→19:03)
[2016-11-06] MEDS: ACYCLOVIR IVPB SCH ×3 (04:02→19:03)
[2016-11-06 04:21] LABS: Basophils % 0.5 %; Eosinophils # 0.6 K/mcL (0.0-0.6); Eosinophils % 10.2 %; Hematocrit 30.7 % (35.3-44.9); Hemoglobin 10.9 g/dL (11.5-15.4); Immature Granulocytes % 0.3 % (0-4); Lymphocytes # 0.8 K/mcL (0.6-4.6); Lymphocytes % 12.7 %; Mean Corpuscular HGB Conc 35.5 g/dL (31.6-35.5); Mean Corpuscular Hemoglobin 32.3 pg (28.0-33.3); Mean Corpuscular Volume 91.1 fL (83.0-100.0); Mean Platelet Volume 9.5 fL (9.4-12.4); Monocytes # 0.6 K/mcL (0.0-1.3); Monocytes % 9.2 %; Neutrophils # 4.1 K/mcL (1.6-8.9); Platelet Count 165 K/mcL (140-400); Red Blood Count 3.37 M/mcL (3.82-4.97); Red Cell Distribution Width 12.6 % (11.5-14.5); Segmented Neutrophils % 67.1 %
[2016-11-06 04:34] LABS: BUN/Creatinine Ratio 14 (6-26); Blood Urea Nitrogen 7 mg/dL (7-20); Calcium 7.7 mg/dL (8.6-10.8); Carbon Dioxide 22 mEq/L (19-29); Chloride 109 mEq/L (98-109); Glucose 102 mg/dL (70-99); Magnesium 1.8 mg/dL (1.6-2.6); Osmolality,Calculated 280 (280-300); Phosphorous 1.1 mg/dL (2.3-4.7); Potassium 2.8 mEq/L (3.5-4.5); Sodium 136 mEq/L (136-145); eGFR For African Americans > 60 (> 60); eGFR For Non-African Americans > 60 (> 60)
[2016-11-06] MEDS: *HR* Heparin 5,000 UNIT/ML VIAL SQ SCH ×3 (06:28→23:10)
[2016-11-06] MEDS: 0.9 % Sodium Chloride 1,000 ML IVC SCH ×3 (06:29→16:29)
[2016-11-06] MEDS: Piperacillin/Tazobactam 3.375 GM in D5% in Water (Mini-Bag+) 100 ML IVPB SCH ×3 (07:46→23:20)
[2016-11-06] MEDS: Acetaminophen 325 MG TABLET PO PRN ×2 (07:46→19:01)
[2016-11-06] MEDS: Pantoprazole 40 MG VIAL IVP SCH (07:46)
[2016-11-06] MEDS ORDERED: Potassium Phosphate 44 MEQ in 0.9 % Sodium Chloride 250 ML IVPB ONE (09:09)
--- NOTE | 2016-11-06 12:18 | Internal Med Progress Note ---
Date of Encounter: 11/06/16 Time of Encounter: 12:15 - Assessment and plan (1) Sepsis Current Visit: Yes Status: Acute Assessment and plan: Resolved CT abd/pelvis consistent with pyelonephritis and Pneumonia LP negative but cannot rule out viral etiology continue Acyclovir, awaiting HSV PCR serologies will continue Vancomycin and Zosyn CSF fluid analysis serologies noted f/u blood cultures Clinically improving with improvement in Leukocytosis and mental status will continue IV fluids Will repeat cultures if becomes febrile Qualifiers: Sepsis type: sepsis due to unspecified organism Qualified Code(s): A41.9 - Sepsis, unspecified organism (2) Electrolyte abnormality Current Visit: Yes Status: Acute Assessment and plan: Hypokalemia and hypophosphatemia K and Phos supplemented continue to monitor electrolytes and replace as needed (3) Dementia Current Visit: No Status: Chronic Assessment and plan: Has baseline mild dementia as per the , and does not have functional disability from that. as per the family, she was eating and drinking and talking normally. Mental status improved from previous day and is close to baseline today Will continue to monitor Will obtain PT eval Qualifiers: Dementia type: Alzheimer's disease Alzheimer's disease onset: early-onset Dementia behavioral disturbance: with behavioral disturbance Qualified Code( s): G30.0 - Alzheimer's disease with early onset; F02.81 - Dementia in other diseases classified elsewhere with behavioral disturbance (4) DVT prophylaxis Current Visit: No Status: Acute Assessment and plan: Heparin SQ - Subjective Interval history: Patient seen and examined with family present at bedside. Patient's mental status improved from previous day, tolerating PO intake better and as per family she is more at baseline. Pt denies any discomfort at this time. - Constitutional Vitals: Temp Pulse Resp BP Pulse Ox 97.7 F 103 20 107/66 95 11/06/16 10:33 11/06/16 10:33 11/06/16 10:33 11/06/16 10:33 11/06/16 10:33 General appearance: Present: A&O X 2, no acute distress - Head Head exam: Present: atraumatic, normocephalic - Eye Eye exam: Present: normal appearance, conjuntiva pink, sclera anicteric - Respiratory Respiratory exam: Absent: accessory muscle use, rales, rhonchi, wheezes Additional comments: coarse breath sounds on bilateral lower bases - Cardiovascular Cardiovascular exam: Present: RRR, +S1, +S2. Absent: diastolic murmur, gallop, rubs, systolic murmur - GI/Abdominal GI/Abdominal exam: Present: normal bowel sounds, soft, no peritoneal signs. Absent: distended, tenderness - Extremities Exam Extremities exam: Present: warm, radial pulses palpable and symetrical. Absent : calf tenderness, cyanotic, pedal edema - Neurological Exam Neurological exam: Present: alert - Psychiatric Psychiatric exam: Present: normal affect, normal mood Internal Medicine: Result - Labs CBC & Chem 7: 11/06/16 04:00 11/06/16 04:00 Labs: Short CBC 11/06/16 Range/Units 04:00 WBC 6.1 (4.3-11.1) K/mcL Hgb 10.9 L (11.5-15.4) g/dL Hct 30.7 L (35.3-44.9) % Plt Count 165 (140-400) K/mcL Neutrophils # 4.1 (1.6-8.9) K/mcL BMP 11/06/16 04:00 Sodium 136 Potassium 2.8 L Chloride 109 Carbon Dioxide 22 BUN 7 Creatinine 0.51 L Glucose 102 H Calcium 7.7 L - ABG Interpretation ABG results: PT/INR, D-dimer PT 11.8 Seconds (9.4-12.1) 11/03/16 17:29 Consult Discharge Plan - Plan Referrals: Ferny Barr MD [Primary Care Provider] - 11/13/16 3:00 pm (Please follow up as schedule...)
[2016-11-06] MEDS ORDERED: Potassium Phosphate 44 MEQ in 0.9 % Sodium Chloride 250 ML IVPB PRN (14:25)
[2016-11-06] MEDS ORDERED: *HR* LORazepam 2 MG/ML VIAL IVP ONE ×2 (21:34→23:22)
[2016-11-06] MEDS: Vancomycin 1,000 MG in D5% in Water 250 ML IVPB SCH (23:20)
[2016-11-07 00:24] LABS: HSV Source CSF
[2016-11-07] MEDS ORDERED: *HR* Metoprolol 5 MG/5 ML VIAL IVP ONE (02:32)
[2016-11-07] MEDS: D5 IVPB SCH (03:06)
[2016-11-07] MEDS: WATER IVPB SCH (03:06)
[2016-11-07] MEDS: ACYCLOVIR IVPB SCH (03:06)
[2016-11-07 04:59] LABS: Basophils % 0.4 %; Eosinophils # 0.6 K/mcL (0.0-0.6); Eosinophils % 6.6 %; Hematocrit 32.2 % (35.3-44.9); Hemoglobin 11.6 g/dL (11.5-15.4); Immature Granulocytes % 0.5 % (0-4); Lymphocytes # 1.1 K/mcL (0.6-4.6); Lymphocytes % 12.2 %; Mean Corpuscular Hemoglobin 32.5 pg (28.0-33.3); Mean Corpuscular Volume 90.2 fL (83.0-100.0); Mean Platelet Volume 9.9 fL (9.4-12.4); Monocytes # 0.9 K/mcL (0.0-1.3); Monocytes % 9.7 %; Neutrophils # 6.6 K/mcL (1.6-8.9); Platelet Count 219 K/mcL (140-400); Red Blood Count 3.57 M/mcL (3.82-4.97); Red Cell Distribution Width 12.5 % (11.5-14.5); Segmented Neutrophils % 70.6 %
[2016-11-07 05:18] LABS: BUN/Creatinine Ratio 8 (6-26); Calcium 8.1 mg/dL (8.6-10.8); Carbon Dioxide 22 mEq/L (19-29); Chloride 106 mEq/L (98-109); Glucose 100 mg/dL (70-99); Magnesium 1.7 mg/dL (1.6-2.6); Osmolality,Calculated 279 (280-300); Sodium 136 mEq/L (136-145); eGFR For African Americans > 60 (> 60); eGFR For Non-African Americans > 60 (> 60)
[2016-11-07 05:20] LABS: Blood Urea Nitrogen 4 mg/dL (7-20)
[2016-11-07] MEDS: *HR* Heparin 5,000 UNIT/ML VIAL SQ SCH ×3 (05:36→21:58)
[2016-11-07] MEDS: Magnesium Sulfate 2 GM in D5% in Water 100 ML IVPB PRN (06:00)
[2016-11-07] MEDS: Piperacillin/Tazobactam 3.375 GM in D5% in Water (Mini-Bag+) 100 ML IVPB SCH ×3 (08:43→23:42)
--- NOTE | 2016-11-07 12:12 | Internal Med Progress Note ---
Date of Encounter: 11/07/16 Time of Encounter: 11:45 - Assessment and plan (1) Sepsis Current Visit: Yes Status: Acute Assessment and plan: Resolved CT abd/pelvis consistent with pyelonephritis and Pneumonia LP negative but cannot rule out viral etiology HSV negative, will discontinue Acyclovir will continue Vancomycin and Zosyn CSF fluid analysis serologies noted f/u final blood cultures Clinically improving with improvement in Leukocytosis and mental status will continue IV fluids Will repeat cultures if becomes febrile Qualifiers: Sepsis type: sepsis due to unspecified organism Qualified Code(s): A41.9 - Sepsis, unspecified organism (2) Electrolyte abnormality Current Visit: Yes Status: Acute Assessment and plan: Hypokalemia and hypophosphatemia K and Phos supplemented continue to monitor electrolytes and replace as needed (3) Dementia Current Visit: No Status: Chronic Assessment and plan: Has baseline mild dementia as per the , and does not have functional disability from that. as per the family, she was eating and drinking and talking normally. Mental status somnolent today due to the Ativan dosing overnight Will refrain from using any more Ativan Consider Haldol 2mg IM if severe agitated Qualifiers: Dementia type: Alzheimer's disease Alzheimer's disease onset: early-onset Dementia behavioral disturbance: with behavioral disturbance Qualified Code( s): G30.0 - Alzheimer's disease with early onset; F02.81 - Dementia in other diseases classified elsewhere with behavioral disturbance (4) DVT prophylaxis Current Visit: No Status: Acute Assessment and plan: Heparin SQ - Subjective Interval history: Patient seen and examined with family present at bedside. patient reported of being severely agitated and was given Ativan 2mg IV overnight. Patient remains somnolent but arousable. Family extremely concerned about her mental status and requests that she be given something for a sleep aid at night rather than what she received last night. - Constitutional Vitals: Temp Pulse Resp BP Pulse Ox 99.1 F 101 22 116/95 95 11/07/16 11:12 11/07/16 11:12 11/07/16 11:12 11/07/16 11:12 11/07/16 08:32 General appearance: Present: A&O X 2 (somnolent but arousable), no acute distress - Head Head exam: Present: atraumatic, normocephalic - Eye Eye exam: Present: normal appearance, conjuntiva pink, sclera anicteric - Respiratory Respiratory exam: Present: CTAB. Absent: accessory muscle use, rales, rhonchi, wheezes - Cardiovascular Cardiovascular exam: Present: RRR, +S1, +S2. Absent: diastolic murmur, gallop, rubs, systolic murmur - GI/Abdominal GI/Abdominal exam: Present: normal bowel sounds, soft, no peritoneal signs. Absent: distended, tenderness - Extremities Exam Extremities exam: Present: warm, radial pulses palpable and symetrical. Absent : calf tenderness, cyanotic, pedal edema - Psychiatric Psychiatric exam: Present: normal affect, normal mood Internal Medicine: Result - Labs CBC & Chem 7: 11/07/16 04:09 11/07/16 04:09 Labs: Short CBC 11/07/16 Range/Units 04:09 WBC 9.3 D (4.3-11.1) K/mcL Hgb 11.6 (11.5-15.4) g/dL Hct 32.2 L (35.3-44.9) % Plt Count 219 (140-400) K/mcL Neutrophils # 6.6 (1.6-8.9) K/mcL BMP 11/07/16 04:09 Sodium 136 Potassium 3.0 L Chloride 106 Carbon Dioxide 22 BUN 4 L Creatinine 0.50 L Glucose 100 H Calcium 8.1 L - ABG Interpretation ABG results: PT/INR, D-dimer PT 11.8 Seconds (9.4-12.1) 11/03/16 17:29 Consult Discharge Plan - Plan Referrals: Ferny Barr MD [Primary Care Provider] - 11/13/16 3:00 pm (Please follow up as schedule...)
[2016-11-07] MEDS: Cyanocobalamin (B-12) 1,000 MCG TABLET PO SCH (15:08)
[2016-11-07] MEDS: Thiamine (B-1) 100 MG TABLET PO SCH (15:08)
[2016-11-07] MEDS: Aspirin 81 MG TAB.CHEW PO SCH (15:08)
[2016-11-07] MEDS ORDERED: *HR* Metoprolol 5 MG/5 ML VIAL IVP PRN (15:38)
[2016-11-07] MEDS: 0.9 % Sodium Chloride 1,000 ML IVC SCH (21:56)
[2016-11-07] MEDS: Vancomycin 1,000 MG in D5% in Water 250 ML IVPB SCH (21:57)
[2016-11-08 00:48] LABS: Magnesium 1.8 mg/dL (1.6-2.6); Phosphorous 2.3 mg/dL (2.3-4.7); Potassium 3.4 mEq/L (3.5-4.5)
[2016-11-08] MEDS: Magnesium Sulfate 2 GM in D5% in Water 100 ML IVPB PRN (01:26)
[2016-11-08 04:55] LABS: Basophils # 0.1 K/mcL (0.0-0.2); Basophils % 0.6 %; Eosinophils # 0.9 K/mcL (0.0-0.6); Hematocrit 32.3 % (35.3-44.9); Hemoglobin 11.4 g/dL (11.5-15.4); Lymphocytes # 1.3 K/mcL (0.6-4.6); Lymphocytes % 14.3 %; Mean Corpuscular HGB Conc 35.3 g/dL (31.6-35.5); Mean Corpuscular Hemoglobin 31.7 pg (28.0-33.3); Mean Corpuscular Volume 89.7 fL (83.0-100.0); Mean Platelet Volume 9.3 fL (9.4-12.4); Monocytes # 1.1 K/mcL (0.0-1.3); Monocytes % 11.9 %; Neutrophils # 5.6 K/mcL (1.6-8.9); Platelet Count 273 K/mcL (140-400); Red Cell Distribution Width 12.5 % (11.5-14.5); Segmented Neutrophils % 62.2 %
[2016-11-08 05:07] LABS: BUN/Creatinine Ratio 6 (6-26); Calcium 8.1 mg/dL (8.6-10.8); Carbon Dioxide 25 mEq/L (19-29); Chloride 103 mEq/L (98-109); Glucose 95 mg/dL (70-99); Magnesium 2.5 mg/dL (1.6-2.6); Osmolality,Calculated 276 (280-300); Phosphorous 2.4 mg/dL (2.3-4.7); Potassium 3.1 mEq/L (3.5-4.5); Sodium 135 mEq/L (136-145); eGFR For African Americans > 60 (> 60); eGFR For Non-African Americans > 60 (> 60)
[2016-11-08 05:09] LABS: Blood Urea Nitrogen 3 mg/dL (7-20)
[2016-11-08] MEDS: *HR* Heparin 5,000 UNIT/ML VIAL SQ SCH ×3 (06:40→21:11)
[2016-11-08] MEDS: Aspirin 81 MG TAB.CHEW PO SCH (07:54)
[2016-11-08] MEDS: Piperacillin/Tazobactam 3.375 GM in D5% in Water (Mini-Bag+) 100 ML IVPB SCH (07:55)
[2016-11-08] MEDS: Cyanocobalamin (B-12) 1,000 MCG TABLET PO SCH (07:55)
[2016-11-08] MEDS: Thiamine (B-1) 100 MG TABLET PO SCH (07:55)
[2016-11-08] MEDS: 0.9 % Sodium Chloride 1,000 ML IVC SCH (07:57)
--- NOTE | 2016-11-08 10:42 | Internal Med Progress Note ---
Date of Encounter: 11/08/16 Time of Encounter: 10:38 - Assessment and plan (1) Atrial fibrillation with RVR Current Visit: Yes Status: Acute Assessment and plan: Noted to have Afib with RVR overnight with rate fluctuating up to 150s Currently rate better controlled Started Metoprolol 25mg PO BID Will obtain 2D echo CHADVASC score: 3 Cardiology consultation requested Given patient's current condition and ambulatory status, concern for high risk of falls,will continue Aspirin at this time and defer to cardiology in regards to retirement anticoagulation (2) Sepsis Current Visit: Yes Status: Acute Assessment and plan: Resolved CT abd/pelvis consistent with pyelonephritis and Pneumonia LP negative but cannot rule out viral etiology HSV negative, will discontinue Acyclovir will continue Vancomycin and Zosyn CSF fluid analysis serologies noted f/u final blood cultures Clinically improving with improvement in Leukocytosis and mental status will continue IV fluids Will repeat cultures if becomes febrile Will continue Abx for a total of 7 days. Qualifiers: Sepsis type: sepsis due to unspecified organism Qualified Code(s): A41.9 - Sepsis, unspecified organism (3) Electrolyte abnormality Current Visit: Yes Status: Acute Assessment and plan: Hypokalemia K supplemented continue to monitor electrolytes and replace as needed (4) Dementia Current Visit: No Status: Chronic Assessment and plan: Has baseline mild dementia as per the , and does not have functional disability from that. as per the family, she was eating and drinking and talking normally. Mental status improved from previous day Qualifiers: Dementia type: Alzheimer's disease Alzheimer's disease onset: early-onset Dementia behavioral disturbance: with behavioral disturbance Qualified Code( s): G30.0 - Alzheimer's disease with early onset; F02.81 - Dementia in other diseases classified elsewhere with behavioral disturbance (5) DVT prophylaxis Current Visit: No Status: Acute Assessment and plan: Heparin SQ - Subjective Interval history: Patient seen and examined with present at bedside. Patient noted to be in afib overnight with HR varying as high as 150, responded to IV metoprolol. At this time continues to be in Afib with RVR. per , patient does have history of Afib but has not been treated for it in a long time. at this time, patient is resting in bed, denies any discomfort. Mental status improved from previous day. - Constitutional Vitals: Temp Pulse Resp BP Pulse Ox 98.1 F 117 22 151/88 92 11/08/16 07:37 11/08/16 07:37 11/08/16 07:37 11/08/16 07:37 11/08/16 07:37 General appearance: Present: A&O X 2, no acute distress - Head Head exam: Present: atraumatic, normocephalic - Eye Eye exam: Present: normal appearance, conjuntiva pink, sclera anicteric - Respiratory Respiratory exam: Present: CTAB. Absent: accessory muscle use, rales, rhonchi, wheezes - Cardiovascular Cardiovascular exam: Present: irregular rhythm, +S1, +S2, tachycardia - GI/Abdominal GI/Abdominal exam: Present: normal bowel sounds, soft, no peritoneal signs. Absent: distended, tenderness - Extremities Exam Extremities exam: Present: warm, radial pulses palpable and symetrical. Absent : calf tenderness, cyanotic, pedal edema - Neurological Exam Neurological exam: Present: alert - Psychiatric Psychiatric exam: Present: normal affect, normal mood Internal Medicine: Result - Labs CBC & Chem 7: 11/08/16 04:00 11/08/16 04:00 Labs: Short CBC 11/08/16 Range/Units 04:00 WBC 9.0 (4.3-11.1) K/mcL Hgb 11.4 L (11.5-15.4) g/dL Hct 32.3 L (35.3-44.9) % Plt Count 273 (140-400) K/mcL Neutrophils # 5.6 (1.6-8.9) K/mcL BMP 11/08/16 11/08/16 00:23 04:00 Sodium 135 L Potassium 3.4 L 3.1 L Chloride 103 Carbon Dioxide 25 BUN 3 L Creatinine 0.54 L Glucose 95 Calcium 8.1 L - ABG Interpretation ABG results: PT/INR, D-dimer PT 11.8 Seconds (9.4-12.1) 11/03/16 17:29 Consult Discharge Plan - Plan Referrals: Ferny Barr MD [Primary Care Provider] - 11/13/16 3:00 pm (Please follow up as schedule...)
[2016-11-08] MEDS: LEVOFLOXACIN 750 MG/150 ML IVPB SCH (12:00)
[2016-11-08 14:27] LABS: Basophils # 0.1 K/mcL (0.0-0.2); Basophils % 0.7 %; Eosinophils # 0.7 K/mcL (0.0-0.6); Eosinophils % 8.5 %; Hematocrit 31.9 % (35.3-44.9); Hemoglobin 11.3 g/dL (11.5-15.4); Immature Granulocytes % 1.5 % (0-4); Immature Platelets 2.9 % (1.1-6.1); Lymphocytes # 1.2 K/mcL (0.6-4.6); Lymphocytes % 14.1 %; Mean Corpuscular HGB Conc 35.4 g/dL (31.6-35.5); Mean Corpuscular Hemoglobin 32.3 pg (28.0-33.3); Mean Corpuscular Volume 91.1 fL (83.0-100.0); Mean Platelet Volume 9.1 fL (9.4-12.4); Monocytes % 12.4 %; Neutrophils # 5.2 K/mcL (1.6-8.9); Platelet Count 294 K/mcL (140-400); Red Cell Distribution Width 12.7 % (11.5-14.5); Segmented Neutrophils % 62.8 %
[2016-11-08 15:18] LABS: Platelet Estimate Normal (Normal)
[2016-11-08 16:01] LABS: BUN/Creatinine Ratio 10 (6-26); Calcium 8.3 mg/dL (8.6-10.8); Carbon Dioxide 20 mEq/L (19-29); Chloride 106 mEq/L (98-109); Glucose 93 mg/dL (70-99); Osmolality,Calculated 281 (280-300); Potassium 3.9 mEq/L (3.5-4.5); Sodium 137 mEq/L (136-145); eGFR For African Americans > 60 (> 60); eGFR For Non-African Americans > 60 (> 60)
[2016-11-08 16:05] LABS: Blood Urea Nitrogen 5 mg/dL (7-20)
--- NOTE | 2016-11-08 17:32 | Cardiology Consult Note ---
Date of Encounter: 11/08/16 Time of Encounter: 17:29 Assessment and Plan (1) PAF (paroxysmal atrial fibrillation) Current Visit: Yes Status: Acute PAF in the setting of sepsis. CHADS-VASc (FM, Age) 2. Baseline advanced dementia. Currently, she is in sinus rhythm. I discussed the option of Coumadin with her the morning, but the patient is currently in sinus rhythm and I suspect the infectious process is contributing to the AF. For now, I would recommend aspirin therapy given sinus rhythm and baseline dementia. Hopefully, we'll see less AF as the infectious issues resolve. If any more recurrences, we could consider full AC since she is reportedly steady on her feet and will administer medications. Agree with BB therapy. Echocardiogram is pending. Please call me if any other questions or concerns. Discussion w patient/family: The assessment and plan as outlined above was discussed with the patient and/or family members who expressed understanding and agreement. All questions were answered. Thank you for involving us in the care of your patient. Please call with any questions. History of Present Illness Consult date: 11/08/16 Requesting physician: Chelsi Gomez Consult reason: AF History of present illness: Ms. Haynes is a 76 year old female admitted on 11/03 and being treated for sepsis. Reported diagnosis of pyelonephritis and pneumonia. Consultation requested regarding AF with RVR. Baseline dementia, but reports ambulates pretty well and no fall history. Currently moving to one floor unit at assisted living facility. states patient does not have a history of heart disease, including AF. Past Med Surg Social Fam HX - Past Medical History Medical history: atrial fibrillation, dementia, other Psychiatric history: no psych history - Past Surgical History Surgical History: no surgical history - Social History Smoking Status: Never smoker Smokeless Tobacco Status: No Alcohol use: occasionally Drug use: none - Family History Mother Living Status: Father Living Status: Medications and Allergies Aspirin 81 mg PO DAILY 03/18/16 [History] Calcium Carbonate/Vitamin D3 [Calcium 600-Vit D3 200 Tablet] 1 each PO DAILY [History] Cyanocobalamin (B-12) [Vitamin B12] 1,000 mcg PO DAILY #90 tablet 09/26/16 [Rx] Docusate [Colace] 100 mg PO BID PRN #60 capsule 09/26/16 [Rx] Ergocalciferol (VITAMIN D2) [Drisdol (50,000 Unit)] 50,000 unit PO QWEEK #20 capsule 09/26/16 [Rx] Thiamine (B-1) [Vitamin B-1] 200 mg PO DAILY #90 tablet 09/26/16 [Rx] Nitrofurantoin (BID) [Macrobid] 100 mg PO BID #14 capsule 10/27/16 [Rx] Allergies Iodinated Contrast Media - Oral and Allergy (Verified 11/06/16 07:09) Hives ROS unobtainable: due to mental status All Systems Review: A 10-system review of systems was performed and is negative for pertinent findings except as documented above in the HPI. Physical Examination Vital Signs, Last 4 Hours Temp Pulse Resp BP Pulse Ox 11/08/16 15:25 98.5 F 87 18 134/87 97 General: No Apparent Distress, Other (Demented. ) HEENT: Atraumatic, Normocephaly, Mucus Membranes Moist Neck: No JVD Cardiac: Reg Rate and Rhythm, Normal S1 and S2, No Murmur Lungs: Normal Breath Sounds, No Wheeze, Rales, Rhonchi, Other (Shallow, poor effort) Neuro: Alert and responsive Abdomen: Soft, Non-Tender Skin: No rashes noted on visualized skin Musculoskeletal: No Chest Wall Tenderness Extremities: No Clubbing, No Cyanosis, No Edema Results 11/08/16 14:07 11/08/16 15:43 Lab Results 11/08/16 11/08/16 11/08/16 00:23 04:00 04:00 WBC 9.0 Hgb 11.4 L Hct 32.3 L Plt Count 273 Sodium 135 L Potassium 3.4 L 3.1 L Chloride 103 Carbon Dioxide 25 BUN 3 L Creatinine 0.54 L Glucose 95 Calcium 8.1 L Magnesium 1.8 2.5 11/08/16 11/08/16 14:07 15:43 WBC 8.2 Hgb 11.3 L Hct 31.9 L Plt Count 294 Sodium 137 Potassium 3.9 Chloride 106 Carbon Dioxide 20 BUN 5 L Creatinine 0.52 L Glucose 93 Calcium 8.3 L Magnesium - Imaging and Cardiology Echo: pending - EKG Interpretation EKG results cardiology: personally reviewed Consult Discharge Plan - Plan Referrals: Ferny Barr MD [Primary Care Provider] - 11/13/16 3:00 pm (Please follow up as schedule...)
[2016-11-08] MEDS ORDERED: Aspirin 325 MG TABLET PO ONE (17:40)
[2016-11-09] MEDS: 0.9 % Sodium Chloride 1,000 ML IVC SCH ×2 (02:50→06:05)
[2016-11-09 03:49] LABS: Basophils # 0.1 K/mcL (0.0-0.2); Basophils % 0.8 %; Eosinophils % 11.1 %; Hematocrit 30.8 % (35.3-44.9); Hemoglobin 10.9 g/dL (11.5-15.4); Immature Granulocytes % 1.2 % (0-4); Lymphocytes # 1.4 K/mcL (0.6-4.6); Lymphocytes % 16.1 %; Mean Corpuscular HGB Conc 35.4 g/dL (31.6-35.5); Mean Corpuscular Hemoglobin 32.3 pg (28.0-33.3); Mean Corpuscular Volume 91.4 fL (83.0-100.0); Mean Platelet Volume 9.1 fL (9.4-12.4); Monocytes # 0.9 K/mcL (0.0-1.3); Neutrophils # 5.2 K/mcL (1.6-8.9); Platelet Count 292 K/mcL (140-400); Red Blood Count 3.37 M/mcL (3.82-4.97); Red Cell Distribution Width 12.6 % (11.5-14.5); Segmented Neutrophils % 60.8 %
[2016-11-09 04:07] LABS: BUN/Creatinine Ratio 10 (6-26); Calcium 8.5 mg/dL (8.6-10.8); Carbon Dioxide 20 mEq/L (19-29); Chloride 106 mEq/L (98-109); Glucose 87 mg/dL (70-99); Magnesium 1.8 mg/dL (1.6-2.6); Osmolality,Calculated 281 (280-300); Phosphorous 2.5 mg/dL (2.3-4.7); Potassium 3.5 mEq/L (3.5-4.5); Sodium 137 mEq/L (136-145); eGFR For African Americans > 60 (> 60); eGFR For Non-African Americans > 60 (> 60)
[2016-11-09 04:10] LABS: Blood Urea Nitrogen 5 mg/dL (7-20)
[2016-11-09] MEDS: Magnesium Sulfate 2 GM in D5% in Water 100 ML IVPB PRN (05:05)
[2016-11-09] MEDS: *HR* Heparin 5,000 UNIT/ML VIAL SQ SCH ×2 (06:02→16:26)
[2016-11-09] MEDS: Cyanocobalamin (B-12) 1,000 MCG TABLET PO SCH (08:01)
[2016-11-09] MEDS: Thiamine (B-1) 100 MG TABLET PO SCH (08:01)
[2016-11-09] MEDS: LEVOFLOXACIN 750 MG/150 ML IVPB SCH (09:25)
--- NOTE | 2016-11-09 09:50 | ECHO - Doppler Report ---
Echocardiogram Name: Beba Haynes Date of Study: 11/08/2016 Date: 1940 Ht: 66.0 in Medical Record#: [id number] Age: 76 Wt: 147.0 lb Gender: Female BSA: 1.75 Order #: [id number] Location: [facility] Room #: 2N03 Reading Physician: Maciej Ventura DO, FACKARINA Russell Track Laborer: Gracy Alvarado RDCS Ordering Physician: Chelsi Gomez MD Primary Physician: Ferny Barr MD Indications: AFIB Impressions: LVEF 60-65%. Normal LV chamber size, wall thickness and function. Indeterminate diastolic function. Normal right ventricular structure and function. Mild to moderate pulmonary hypertension. Estimated RVSP is 47 mmHg. Pleural effusion noted. No significant valvular dysfunction. Left Ventricular Wall Motion: Rest Echo Findings All wall segments showed normal motion. Findings: Study Quality * Technically adequate exam. ECG Findings * Normal sinus rhythm. Left Ventricle * LVEF 60-65%. * Normal LV chamber size, wall thickness and function. * Indeterminate diastolic function. Right Ventricle * Normal right ventricular structure and function. Left Atrium * Normal left atrial size. Right Atrium * Normal right atrial size. Interatrial Septum * Interatrial septum not well evaluated. Aortic Valve * Aortic valve not well visualized. * Trace aortic regurgitation. * No aortic stenosis. Mitral Valve * Normal mitral valve structure and function. * No mitral stenosis. * Trace mitral regurgitation. Tricuspid Valve * Normal tricuspid valve structure and function. * Trace tricuspid regurgitation. * Mild to moderate pulmonary hypertension. * Estimated RVSP is 47 mmHg. * Estimated RA pressure is 10 mmHg. Pulmonic Valve * Pulmonic valve not well visualized. * No pulmonic regurgitation. Aorta * Normally sized aortic root. Pericardium * There is a trivial pericardial effusion present. IVC * The IVC is dilated. * < 50% respiratory change. Unclear if Valsalva truly attempted. Pleural Effusion * Pleural effusion noted. Pulmonary Artery * Normal visualized portions of the main pulmonary artery. History Measurements: BP: 151/ 88 2D Normal Values RVIDd: 2.45 cm <2.7 cm IVSd: .92 cm 0.6 - 1.0 cm LVIDd: 4.01 cm 3.7 - 5.6 cm LVPWd: 1.03 cm 0.6 - 1.1 cm LVIDs: 2.27 cm 1.5 - 3.6 cm AO: 2.70 cm < 4.0 cm LA: 3.40 cm 2.0 - 4.0cm %FS: 43.40 cm >25 % LA volume: 27 Mitral Valve Peak E:1.05 m/sec Peak E' Lat Saulo:9.79 cm/s Peak E' Med Saulo:8.05 cm/s E/E' Lat Ratio:10.7 E/E' Med Ratio:13 Aortic Valve AI pressure Half-time: 1227.00 msec Tricuspid Valve TV Regurg Peak Grad: 37.00mmHg TV Regurg Peak Saulo: 3.04m/sec Updated by Maciej Ventura DO, FAIZA, KARINA, KELI on 11/09/2016 9:46:32 AM electronically signed on 11/09/2016 9:47:05 AM with status of Final Wall Motion Ling: 1=Normal, 2=Hypokinesis, 3=Akinesis, 4=Dyskinesis, 5=Aneurysmal, 6=Hyperkinetic, X=Not Visualized (Blank)=Missing
[2016-11-09 13:27] LABS: Magnesium 2.2 mg/dL (1.6-2.6); Phosphorous 3.4 mg/dL (2.3-4.7); Potassium 4.4 mEq/L (3.5-4.5)
--- NOTE | 2016-11-09 14:32 | Discharge Summary ---
Date of Encounter: 11/09/16 Time of Encounter: 14:29 - Discharge Diagnosis (1) Atrial fibrillation with RVR Priority: Secondary Status: Acute (2) Sepsis Priority: Primary Status: Resolved Qualifiers: Sepsis type: sepsis due to unspecified organism Qualified Code(s): A41.9 - Sepsis, unspecified organism (3) Electrolyte abnormality Priority: Secondary Status: Acute (4) Dementia Priority: Secondary Status: Chronic Qualifiers: Dementia type: Alzheimer's disease Alzheimer's disease onset: early-onset Dementia behavioral disturbance: with behavioral disturbance Qualified Code( s): G30.0 - Alzheimer's disease with early onset; F02.81 - Dementia in other diseases classified elsewhere with behavioral disturbance (5) DVT prophylaxis Priority: Secondary Status: Acute - Discharge Medications Prescriptions: Levofloxacin 750 mg PO DAILY #1 tablet Metoprolol [Lopressor] 25 mg PO BID #60 tablet Quetiapine Fumarate [Seroquel] 25 mg PO HS PRN #30 tablet PRN Reason: agitation/restlessness Home Medications: Aspirin 81 mg PO DAILY 03/18/16 [History] Calcium Carbonate/Vitamin D3 [Calcium 600-Vit D3 200 Tablet] 1 each PO DAILY [History] Cyanocobalamin (B-12) [Vitamin B12] 1,000 mcg PO DAILY #90 tablet 09/26/16 [Rx] Docusate [Colace] 100 mg PO BID PRN #60 capsule 09/26/16 [Rx] Ergocalciferol (VITAMIN D2) [Drisdol (50,000 Unit)] 50,000 unit PO QWEEK #20 capsule 09/26/16 [Rx] Thiamine (B-1) [Vitamin B-1] 200 mg PO DAILY #90 tablet 09/26/16 [Rx] Levofloxacin 750 mg PO DAILY #1 tablet 11/09/16 [Rx] Metoprolol [Lopressor] 25 mg PO BID #60 tablet 11/09/16 [Rx] Quetiapine Fumarate [Seroquel] 25 mg PO HS PRN #30 tablet 11/09/16 [Rx] Allergies/Adverse Reactions: Allergies Iodinated Contrast Media - Oral and Allergy (Verified 11/06/16 07:09) Hives Procedures/tests Complete & Pending: Procedures Performed prior 72 hours Category Date Time Status EV echocardiogram Routine Y 11/08/16 10:21 Completed Date of admission: 11/03/16 23:00 Primary care physician: Ferny Barr MD Consults: 11/04/16 03:27 Consult to Supplier Quality [CONS] Routine Reason for SW Consult: POSSIBLE HOME NEEDS DEMENTIA IS "WORSENING" 11/04/16 08:28 Consult to Interventional Radiology [CONS] Routine Consulting Provider: Radiology Interventional Cols Reason for Consult: please evaluate for LP for possible [employer] infection. thank you. Call Completed: No 11/05/16 10:45 Consult to Invasive Line Access Team [CONS] Routine Reason for Consult: limited vascular access Line Type: EPIV 11/06/16 12:14 OT [Consult to Occupational Therapy] [CONS] Routine Comment: Evaluate, develop and implement POC PT [Consult to Physical Therapy] [CONS] Routine Comment: Evaluate, develop and implement POC 11/08/16 10:09 Consult to Cardiology [CONS] Routine Comment: Consulting Provider: Cardiology [place] Reason for Consult: NEW ONSET AFIB Call Completed: Yes Discharging clinician: Chelsi Gomez Anticipated date of discharge: 11/09/16 - Patient Status Disposition: Home Health Service Condition: Good Functional capacity at discharge: uses cane/walker Overall status at discharge: patient is back to baseline - Discharge Instructions Follow Up With: Ferny Barr MD [Primary Care Provider] - 11/13/16 3:00 pm (Please follow up as schedule...) Forms: ED Satisfaction Letter Additional Instructions: Please follow up with your primary care physician within one week after your discharge from the hospital. Please follow with your inventory assistant within one to two weeks after your discharge from the hospital. Please continue to take Levofloxacin for one more day to finish treatment for a total of 7 days. Metoprolol 25mg twice a day has been added to your home medications, please use this medication as prescribed. Hold this medication if you have HR<60 or SBP< 120. Please inform your primary care physician of this add on. Continue taking your daily Aspirin 81mg. Resume all your other home medications as prescribed by your primary care physician. Seroquel 12.5mg at bedtime as needed for agitation/restlessness has been added to your home medications. Take this medication as needed. - Diet and Activity Activity: as per physical therapy Diet: advance to your usual diet Hospital course: Ms. Haynes is a 76 year old female with PMH of dementia, recurrent UTI who was admitted for management of sepsis. Patient was started on empiric IV antibiotic treatment and IV fluids. Due to persistent leukocytosis, lumbar puncture was done by IR to rule out any meningeal causes of her sepsis. After further imaging studies, patient was found to have lower lobe pneumonia for which antibiotic therapy was further de-escalated. Her lumbar puncture and spinal fluid analysis were all within normal limits and antibiotic therapy was de- escalated to treat pneumonia. She responded well to therapy however her hospital course was complicated by new onset of atrial fibrillation. As per family patient has underlying history of intermittent episodes of atrial fibrillation for which she is not chronically treated. Patient was started on beta [place] and cardiology was consulted. Patient had an echocardiogram done which showed left ventricular ejection fraction of 60-65% with normal left ventricular chamber size, wall thickness, and function. Patient responded well to beta [place] therapy and is currently in normal sinus rhythm. No long-term anticoagulation was recommended as this onset of A. fib could have been brought by her underlying infection. Patient was also evaluated by physical therapy and home health was recommended. At this time patient is hemodynamically stable , rate controlled, mental status back to baseline. Patient will be discharged to home with follow up with primary care physician and cardiology. She is to continue oral antibiotics to finish treatment for total of 7 days. Patient and her demonstrate understanding of her diagnosis and agree with the discharge care and plan. - Time Spent with Patient Total time spent providing and/or coordinating discharge services: Greater than 30 minutes - Constitutional Vitals: Temp Pulse Resp BP Pulse Ox 97.8 F 77 18 119/65 98 11/09/16 11:35 11/09/16 11:40 11/09/16 11:35 11/09/16 11:35 11/09/16 12:10 General appearance: Present: cooperative, A&O X 3, no acute distress, answers questions appropriately - Head Head exam: Present: atraumatic, normocephalic - Eye Eye exam: Present: normal appearance, conjuntiva pink, sclera anicteric - Respiratory Respiratory exam: Present: CTAB. Absent: accessory muscle use, rales, rhonchi, wheezes - Cardiovascular Cardiovascular exam: Present: RRR, +S1, +S2. Absent: diastolic murmur, gallop, rubs, systolic murmur - GI/Abdominal GI/Abdominal exam: Present: normal bowel sounds, soft, no peritoneal signs. Absent: distended, tenderness - Extremities Exam Extremities exam: Present: warm, radial pulses palpable and symetrical. Absent : calf tenderness, cyanotic, pedal edema - Neurological Exam Neurological exam: Present: alert - Psychiatric Psychiatric exam: Present: normal affect, normal mood
--- NOTE | 2016-11-09 14:43 | Physician Discharge Referral ---
Home Health/Hosp Referral Info Transfer to: Home Health Provider in Charge Post Discharge: PCP - Diagnosis (1) Atrial fibrillation with RVR Priority: Secondary Status: Acute (2) Sepsis Priority: Primary Status: Resolved (3) Electrolyte abnormality Priority: Secondary Status: Acute (4) Dementia Priority: Secondary Status: Chronic (5) DVT prophylaxis Priority: Secondary Status: Acute - Respiratory Orders Smoking Cessation: Smoking cessation has been advised. For more information, call the [place] Tobacco Quit Line at 8-421-CCDF-NOW. - Services Needed Following services are medically necessary services: Nursing, Home Health Aide, Physical Therapy, Occupational Therapy, Med Social Work - Transfer Medications Prescriptions: Levofloxacin 750 mg PO DAILY #1 tablet Metoprolol [Lopressor] 25 mg PO BID #60 tablet Quetiapine Fumarate [Seroquel] 25 mg PO HS PRN #30 tablet PRN Reason: agitation/restlessness Home Medications: Aspirin 81 mg PO DAILY 03/18/16 [History] Calcium Carbonate/Vitamin D3 [Calcium 600-Vit D3 200 Tablet] 1 each PO DAILY [History] Cyanocobalamin (B-12) [Vitamin B12] 1,000 mcg PO DAILY #90 tablet 09/26/16 [Rx] Docusate [Colace] 100 mg PO BID PRN #60 capsule 09/26/16 [Rx] Ergocalciferol (VITAMIN D2) [Drisdol (50,000 Unit)] 50,000 unit PO QWEEK #20 capsule 09/26/16 [Rx] Thiamine (B-1) [Vitamin B-1] 200 mg PO DAILY #90 tablet 09/26/16 [Rx] Levofloxacin 750 mg PO DAILY #1 tablet 11/09/16 [Rx] Metoprolol [Lopressor] 25 mg PO BID #60 tablet 11/09/16 [Rx] Quetiapine Fumarate [Seroquel] 25 mg PO HS PRN #30 tablet 11/09/16 [Rx] Allergies/Adverse Reactions: Allergies Iodinated Contrast Media - Oral and Allergy (Verified 11/06/16 07:09) Hives Certification: Further, I certify that my clinical findings support that this patient is homebound (i.e. absences from home require considerable and taxing effort and are for medical reasons or jain services or infrequently or short duration when for other reasons) because: Homebound Reason: Patient requires assistance of a person or device to safely leave home Attestation: My signature below is to certify that this patient is under my care and that I, or nurse practitioner, or a physician's certified surgical assistant working with me, has a face-to -face encounter with this patient.
[2016-11-09] MEDS ORDERED: Aminoglycoside Consult 1 EACH MC ONE (17:03)
--- NOTE | 2016-11-11 08:47 | Electrocardiograph Report ---
[place] [address] Test Date: 2016-11-08 Pat Name: Beba Haynes Department: 110 Room: 2N03 Gender: F Embedded Software Architect: [id number] : [id number] Requested By: Chelsi Gomez Order Number: [id number] Reading MD: Reilly Bryant MD Measurements Intervals [place] Rate: 102 P: NH: 0 QRS: 32 QRSD: 86 T: 0 QT: 335 QTc: 394 Interpretive Statements ATRIAL FIBRILLATION WITH MODERATE VENTRICULAR RESPONSE Electronically Signed On 11-11-2016 8:46:12 EDT by Reilly Bryant MD
[2016-11-12 10:30] VITALS: BP 119/65
== END 2016-11-09 17:04 | disposition home health service (06) | DRG 871 ==
LOC: 3BNU 16:28 → EMEROO 16:28 → 2ANU 20:19 → SUATTDRO 23:00 → 2NNU 11-04 16:01
PROVIDERS: ADMIT Internal Medicine; ATTEND Internal Medicine

== ENCOUNTER 2017-12-22 08:09 | Inpatient (IN) ==
[2017-12-22] MEDS ORDERED: Aspirin Enteric Coated 81 MG Tablet PO SCH (10:15)
[2017-12-22] MEDS ORDERED: Ondansetron 4 MG/2 ML VIAL IVP PRN ×2 (10:16→18:24)
[2017-12-22] MEDS ORDERED: Naloxone 0.4 MG/ML INJ IVP PRN ×2 (10:16→18:24)
[2017-12-22] MEDS ORDERED: OXYCODONE Oral CONC 10 MG/0.5 ML ORAL.SYG SL PRN ×2 (10:16→12:11)
[2017-12-22 10:21] LABS: Hematocrit 34.4 % (35.3-44.9); Hemoglobin 12.3 g/dL (11.5-15.4); Mean Corpuscular HGB Conc 35.8 g/dL (31.6-35.5); Mean Corpuscular Hemoglobin 33.9 pg (28.0-33.3); Mean Corpuscular Volume 94.8 fL (83.0-100.0); Mean Platelet Volume 9.2 fL (9.4-12.4); Platelet Count 234 K/mcL (140-400); Red Blood Count 3.63 M/mcL (3.82-4.97)
[2017-12-22 10:27] LABS: Prothrombin Time 11.2 Seconds (9.4-12.1)
--- NOTE | 2017-12-22 10:34 | Internal Med History&Physical ---
Date of Encounter: 12/22/17 Time of Encounter: 10:03 Internal Medicine - H&P: HPI Chief complaint: transfer from [facility] for right hip fracture Admitted From: Hospital to Hospital Transfer Plans for Post Hospital Care: Transfer Senior Living Facility History of present illness: Ms. Haynes is a 77 year old female with PMH of advanced dementia, osteoporosis who was transferred from [facility] for management of acute right hip fracture. Given pt's dementia, history was obtained from the med records and family. Pt was noted to have a mechanical fall as she was coming out of the bathroom at home. She lives with her and at her baseline she is AAO x 1. At this time, she is AAOx0 and as per , she became confused after receiving pain medications in the ER prior to her transfer. Pt denies any shortness of breath, chest pain, abd pain, n/v, fever, or chills at this time. Her pain is under control at this time. Past Med Surg Social Fam HX - Past Medical History Medical history: arthritis, dementia, osteoporosis Psychiatric history: no psych history - Past Surgical History Surgical History: no surgical history - Social History Smoking Status: Never smoker Smokeless Tobacco Status: No Alcohol use: occasionally Drug use: none - Family History Mother Living Status: Hx Family Cardiac Disorders: Yes Hx Family Neurologic Disorders: Yes Hx Family HEENT Disorders: Yes Father Living Status: Hx Family Cardiac Disorders: Yes Internal Medicine - H&P: Meds Aspirin [Lo-Dose Aspirin EC] 81 mg PO DAILY 12/22/17 [History] Calcium Carbonate/Vitamin D3 [Calcium 600 + Vit D Tablet] 1 tab PO DAILY [History] Quetiapine Fumarate [Seroquel] 50 mg PO BID 12/22/17 [History] 3 Allergy/AdvReac Type Severity Reaction Status Date / Time Iodinated Contrast- Oral and Allergy Hives Verified 04/13/17 17:35 IV Dye All Systems PM: A 10-system review of systems was performed and is negative for pertinent findings except as documented above in the HPI. - Constitutional Constitutional: as per HPI - Constitutional Vitals: Temp Pulse Resp BP Pulse Ox 97.7 F 84 16 143/76 95 12/22/17 10:23 12/22/17 10:23 12/22/17 10:23 12/22/17 10:23 12/22/17 10:23 General appearance: Present: A&O X 0, no acute distress - Head Head exam: Present: atraumatic, normocephalic - Eye Eye exam: Present: conjuntiva pink, sclera anicteric - Respiratory Respiratory exam: Present: CTAB. Absent: respiratory distress, wheezes - Cardiovascular Cardiovascular exam: Present: RRR, +S1, +S2. Absent: diastolic murmur, gallop, rubs, systolic murmur - GI/Abdominal GI/Abdominal exam: Present: normal bowel sounds, soft. Absent: distended, tenderness - Extremities Exam Extremities exam: Present: warm, radial pulses palpable and symmetrical. Absent : calf tenderness, pedal edema Internal Med - H&P Results - Labs CBC & Chem 7: 12/22/17 09:48 Labs: Short CBC 12/22/17 Range/Units 09:48 WBC 16.3 H (4.3-11.1) K/mcL Hgb 12.3 (11.5-15.4) g/dL Hct 34.4 L (35.3-44.9) % Plt Count 234 (140-400) K/mcL - Assessment and plan (1) Hip fracture, right Current Visit: Yes Status: Acute Assessment and plan: Hip xray reported mildly displaced intertrochanteric right hip fracture. Mild to moderate right hip osteoarthritis continue supportive care Ortho surgery evaluation requested with Dr. Martinez Qualifiers: Encounter type: initial encounter Fracture type: closed Qualified Code(s) : S72.001A - Fracture of unspecified part of neck of right femur, initial encounter for closed fracture (2) Dementia Current Visit: No Status: Chronic Assessment and plan: as per prior med records, pt appears to be at baseline, however pt's claims that her mentation became worst after receiving the pain medications Will continue to closely monitor continue home meds Qualifiers: Dementia type: Alzheimer's disease Alzheimer's disease onset: early-onset Dementia behavioral disturbance: with behavioral disturbance Qualified Code( s): G30.0 - Alzheimer's disease with early onset; F02.81 - Dementia in other diseases classified elsewhere with behavioral disturbance (3) DVT prophylaxis Current Visit: Yes Status: Acute Assessment and plan: heparin SQ - Time Spent With Patient Total time spent is greater than 50% in coordination of care (as documented) at patient's floor/unit and/or counseling patient:
[2017-12-22 10:35] LABS: BUN/Creatinine Ratio 23 (6-26); Blood Urea Nitrogen 14 mg/dL (8-23); Calcium 9.3 mg/dL (8.6-10.3); Carbon Dioxide 21 mEq/L (23-29); Chloride 104 mEq/L (98-107); Glucose 137 mg/dL (70-105); Osmolality,Calculated 283 (280-300); Potassium 3.6 mEq/L (3.5-5.1); Sodium 135 mEq/L (136-145); eGFR For African Americans > 60 (> 60); eGFR For Non-African Americans > 60 (> 60)
[2017-12-22] MEDS ORDERED: Cholecalciferol (D-3) 1,000 UNIT TABLET PO SCH (11:00)
[2017-12-22] MEDS ORDERED: 0.9 % Sodium Chloride 1,000 ML IVC SCH ×2 (12:15→18:24)
--- NOTE | 2017-12-22 14:37 | Orthopedic Consult Note ---
Date of Encounter: 12/22/17 Time of Encounter: 10:30 Assessment and Plan (1) Hip fracture, right Current Visit: Yes Status: Acute Patient has Right hip fracture, reviewed options with her . Patient has dementia, and currently on pain medication. Consent reviewed and signed by patient's . Plan for a Right Hip Trochanteric nail fixation today with . Risks versus benefits reviewed and discussed. Qualifiers: Encounter type: initial encounter Fracture type: closed Qualified Code(s) : S72.001A - Fracture of unspecified part of neck of right femur, initial encounter for closed fracture History of Present Illness Chief complaint: Fall HPI: Ms. Haynes is a 77 year old female, history of dementia. Poor historian, history obtained from medical records and patient's . She was using the restroom this morning, and had a mechanical fall onto her Right side. She was unable to ambulate. Patient reporting pain radiating into right leg. Denies N/T. Denies swelling. Patient has villar catheter in place. Patient reports that has had urinary tract infections in the past. Family denies history of fracture of trauma. RLE: Minimal swelling, RLE externally rotated. No ecchymosis, erythema or deformity noted. No abrasions. Tenderness to greater trochanteric region, no calf tenderness. No fluctuance noted. ROM limited. NV intact. Skin intact. Past Med Surg Social Fam HX - Past Medical History Medical history: arthritis, dementia, osteoporosis Psychiatric history: no psych history - Past Surgical History Surgical History: no surgical history - Social History Smoking Status: Never smoker Smokeless Tobacco Status: No Alcohol use: occasionally Drug use: none - Family History Mother Living Status: Hx Family Cardiac Disorders: Yes Hx Family Neurologic Disorders: Yes Hx Family HEENT Disorders: Yes Father Living Status: Hx Family Cardiac Disorders: Yes Medications and Allergies Aspirin [Lo-Dose Aspirin EC] 81 mg PO DAILY 12/22/17 [History] Calcium Carbonate/Vitamin D3 [Calcium 600 + Vit D Tablet] 1 tab PO DAILY [History] Quetiapine Fumarate [Seroquel] 50 mg PO BID 12/22/17 [History] 3 Allergy/AdvReac Type Severity Reaction Status Date / Time Iodinated Contrast- Oral and Allergy Hives Verified 04/13/17 17:35 IV Dye All Systems Reviewed: The remainder of the systems were reviewed and are negative - Constitutional Constitutional: as per HPI, no fever(s), no frequent falls (d), no weakness Physical Exam - Constitutional Vitals: Temp Pulse Resp BP Pulse Ox 97.7 F 84 16 143/76 95 12/22/17 10:23 12/22/17 10:23 12/22/17 10:23 12/22/17 10:23 12/22/17 10:23 Results - Labs Result Diagrams: 12/22/17 17:18 12/22/17 09:48 Labs: Abnormal lab results WBC 16.3 K/mcL (4.3-11.1) H 12/22/17 09:48 RBC 3.63 M/mcL (3.82-4.97) L 12/22/17 09:48 Hct 34.4 % (35.3-44.9) L 12/22/17 09:48 MCH 33.9 pg (28.0-33.3) H 12/22/17 09:48 MCHC 35.8 g/dL (31.6-35.5) H 12/22/17 09:48 MPV 9.2 fL (9.4-12.4) L 12/22/17 09:48 Sodium 135 mEq/L (136-145) L 12/22/17 09:48 Carbon Dioxide 21 mEq/L (23-29) L 12/22/17 09:48 Glucose 137 mg/dL (70-105) H 12/22/17 09:48 H & H 12/22/17 Range/Units 09:48 Hgb 12.3 (11.5-15.4) g/dL Hct 34.4 L (35.3-44.9) % All other labs normal. Consult Discharge Plan - Plan Referrals: Ferny Barr MD [Primary Care Provider] -
--- NOTE | 2017-12-22 14:48 | Anesthesia Evaluation PreOp ---
Date of Encounter: 12/22/17 Time of Encounter: 14:46 - Past History Planned Operation: Right Hip TFN Cardiac History: Denies any Significant Hx Pulmonary History: Denies Any Significant HX BUSINESS IMPROVEMENT MANAGER History: Other (Dementia) Other Medical History: Other (Arthritis, Osteoporosis) Anesthesia History: No Prior Anesthetic Complications, Past Anesthesia (none) : No Alcohol Use: occasionally Drug use: none Medications and Allergies Aspirin [Lo-Dose Aspirin EC] 81 mg PO DAILY 12/22/17 [History] Calcium Carbonate/Vitamin D3 [Calcium 600 + Vit D Tablet] 1 tab PO DAILY [History] Quetiapine Fumarate [Seroquel] 50 mg PO BID 12/22/17 [History] 3 Allergy/AdvReac Type Severity Reaction Status Date / Time Iodinated Contrast- Oral and Allergy Hives Verified 04/13/17 17:35 IV Dye - Meds/Allergy Pre-op Review Medications Reviewed: Yes Allergies Reviewed: Yes Beta Blockers on Current Med List: No Anesthesia Results - Labs 12/22/17 09:48 12/22/17 09:48 Echocardiogram Name: Beba Haynes Date of Study: 11/08/2016 Indications: AFIB Impressions: LVEF 60-65%. Normal LV chamber size, wall thickness and function. Indeterminate diastolic function. Normal right ventricular structure and function. Mild to moderate pulmonary hypertension. Estimated RVSP is 47 mmHg. Pleural effusion noted. No significant valvular dysfunction. - Imaging EKG: report reviewed (PROBABLY SINUS RHYTHM - ARTIFACT ON BASELINE LIMITS INTERPRETATION) Anesthesia Exam O2 Sat Height 1.52 m Weight 67 kg O2 Sat by Pulse Oximetry 95 Vital Signs Temp Pulse Resp BP Pulse Ox 97.7 F 84 16 143/76 95 12/22/17 10:23 12/22/17 10:23 12/22/17 10:23 12/22/17 10:23 12/22/17 10:23 NPO (# of Hours): > 8 hrs Pain Scale: 0 Pain Scale Used: Numeric (1 - 10) - HEENT Pupil (Motor): Pupils equal, EOMI Mallampati: III Teeth: Normal Oral Opening: Greater than 3 - BUSINESS IMPROVEMENT MANAGER LOC: Oriented BUSINESS IMPROVEMENT MANAGER Motor: Normal RUE, Normal LUE, Normal RLE, Normal LLE, Normal Face BUSINESS IMPROVEMENT MANAGER Sensory: Normal: RUE, LUE, RLE, LLE, Face - Cardiac Rhythm: Regular Murmur: None JVD: No Carotid Bruit: No - Pulmonary Breath Sounds: bilateral Clear Respiratory Effort: Symmetrical Anesthesia Assess/Plan ASA Score: 2 Anesthetic Plan: General Autologous Blood: Yes Monitoring Plan: Standard Monitors Recovery Plan: PACU
[2017-12-22] MEDS ORDERED: ceFAZolin 2,000 MG in Water for inj. (sterile) 20 ML 10 ML IVP ONE (15:07)
[2017-12-22] MEDS ORDERED: *HR* HYDROmorphone 2 MG TABLET PO PRN (16:03)
[2017-12-22] MEDS ORDERED: *HR* Labetalol 20 MG/4 ML SYRINGE IVP PRN (16:03)
[2017-12-22] MEDS ORDERED: *HR* OxyCODONE Immed Rel 5 MG TABLET PO PRN (16:03)
[2017-12-22] MEDS ORDERED: *HR* PHENYLEPHRINE 1,000 MCG/10 ML SYRINGE IVP ONE (16:06)
[2017-12-22] MEDS ORDERED: EPHEDrine 50 MG/ML VIAL ONE (16:06)
[2017-12-22] MEDS ORDERED: Lidocaine -MPF 2% 2 ML VIAL ONE (16:06)
[2017-12-22] MEDS ORDERED: *HR* Propofol 200 MG/20 ML VIAL IVP ONE (16:06)
[2017-12-22] MEDS ORDERED: *HR* FentaNYL (PF) 100 MCG/2 ML VIAL ONE (16:06)
--- NOTE | 2017-12-22 16:12 | Orthopedic Operative Note ---
Date of procedure: 12/22/17 Pre-op diagnosis: Displaced right intertrochanteric hip fracture Procedure: Procedure: Right hip open reduction intramedullary nail fixation Estimated blood loss: 100 cc Hardware: Metal: 10 mm x 130 degree Synthes TFN, 90 mm helical blade, 36 mm distal locking bolt Operative procedure: The patient was brought to the operating room and placed on the operating room table. After general anesthesia was administered the well leg was place in the well leg stein and the operative leg was placed in the fracture leg stein. All pressure points were padded appropriately. The operative extremity was prepped and draped in the sterile surgical fashion patient received IV antibiotic prior to skin incision. A standard direct lateral approach was made over the entry point of the greater trochanter, the incision was made through the skin and subcutaneous tissue hemostasis was obtained with Bovie cautery. Using careful sharp dissection the fascia was identified and incised, flouroscopic assistance was used to identify the entry point. The guidepin was placed at the entry point using fluroscopic assistance, it was over reamed with the proximal reamer. The 10 x 130 degree nail was placed through the entry hole, across the fracture site into the distal fragment the position was confirmed with fluroscopy. A guide pin was placed through the proximal locking guide from the lateral femur through the nail across the fracture site into the femoral head, it was over reamed with the reamer. The 90 mm helical blade was placed over the guide pin through the nail into the femoral head, locked in place with the proximal locking bolt. 36 mm Distal locking bolt was placed through the distal locking guide. position of hardware and fracture reduction found to be acceptable with fluroscopic assistance. The wound was irrigated. Fascia was closed with a running #2 PDS suture. The deep tissue was irrigated and closed deep with #1 PDS suture superficially with 0 PDS suture and skin was closed with skin ehsan. The patient was placed in a sterile dressing The patient was extubated and transferred to the recovery room in stable condition. Anesthesia: GETA Surgeon: Epifanio Martinez Was there an special education educational assistant present: No Estimated blood loss (cc): 100 Condition: stable Disposition: PACU
[2017-12-22] MEDS ORDERED: Ondansetron 4 MG/2 ML VIAL ONE (16:19)
[2017-12-22] MEDS ORDERED: Acetaminophen IV 1,000 MG/100 ML INFUS..BTL IVPB ONE (17:17)
[2017-12-22] MEDS: *HR* FentaNYL (PF) 100 MCG/2 ML VIAL IVP SCH ×2 (17:39→17:54)
[2017-12-22 17:40] LABS: Hemoglobin 11.9 g/dL (11.5-15.4)
[2017-12-22] MEDS ORDERED: *HR* Heparin 5,000 UNIT/ML VIAL SQ SCH (18:00)
[2017-12-23] MEDS: OXYCODONE Oral CONC 10 MG/0.5 ML ORAL.SYG SL PRN ×2 (00:25→06:27)
[2017-12-23] MEDS: CeFAZolin Pre 2,000 MG/100 ML 2,000 MG/100 ML BAG IVPB SCH ×2 (00:31→08:38)
--- NOTE | 2017-12-23 06:17 | Orthopedics Progress Note ---
Date of Encounter: 12/23/17 Time of Encounter: 06:16 Subjective Interval history: Patient was seen this morning doing well without complaints. Afebrile vital signs stable. Operative extremity: Neurovascularly intact Dressing clean dry and intact Calves nontender Assessment and plan: Continue with postoperative care Hematocrit 34 stable for discharge Objective Vital signs: Vital Signs Temp Pulse Resp BP Pulse Ox 12/23/17 03:27 98.1 F 97 18 137/80 96 12/22/17 21:50 98.9 F 76 16 116/76 95 12/22/17 20:50 98.7 F 78 16 128/86 95 12/22/17 19:50 99.1 F 78 16 118/64 96 12/22/17 19:20 99.2 F 80 16 118/80 95 12/22/17 18:50 99.0 F 109 14 136/77 97 12/22/17 18:07 98 16 147/82 100 12/22/17 17:57 97.2 F L 99 18 150/81 98 12/22/17 17:47 91 18 138/82 99 12/22/17 17:37 98 18 146/82 98 12/22/17 17:27 97.6 F 101 18 152/88 93 12/22/17 17:17 101 18 159/81 93 12/22/17 17:07 96 18 160/82 93 12/22/17 16:57 88 16 162/86 96 12/22/17 16:47 96 16 151/90 100 12/22/17 16:37 97.1 F L 99 16 173/89 100 12/22/17 15:04 97 15 169/78 96 12/22/17 10:23 97.7 F 84 16 143/76 95 Intake and Output 12/22/17 12/22/17 12/23/17 15:59 23:59 07:59 Intake Total 0 / 0 10 10 Output Total 200 / 200 100 / 100 Balance -200 / -200 -90 / -90 Intake: IV Fluids 10 / 10 Ancef 2,000 MG In Water for inj 10 10 . (sterile) 10 ML @ 200 mls/hr IVP ONCE ONE Rx#:[id number] Oral 0 / 0 Output: Estimated Blood Loss 100 / 100 Catheter 200 / 200 Other: Weight 67 kg - Labs CBC & BMP: 12/22/17 17:18 12/22/17 09:48 Labs: Abnormal lab results WBC 16.3 K/mcL (4.3-11.1) H 12/22/17 09:48 RBC 3.63 M/mcL (3.82-4.97) L 12/22/17 09:48 Hct 34.0 % (35.3-44.9) L 12/22/17 17:18 MCH 33.9 pg (28.0-33.3) H 12/22/17 09:48 MCHC 35.8 g/dL (31.6-35.5) H 12/22/17 09:48 MPV 9.2 fL (9.4-12.4) L 12/22/17 09:48 Sodium 135 mEq/L (136-145) L 12/22/17 09:48 Carbon Dioxide 21 mEq/L (23-29) L 12/22/17 09:48 Glucose 137 mg/dL (70-105) H 12/22/17 09:48 - VTE Documentation of Mechanical Device: Venous foot pump, device Consult Discharge Plan - Plan Referrals: Ferny Barr MD [Primary Care Provider] -
[2017-12-23] MEDS: *HR* Heparin 5,000 UNIT/ML VIAL SQ SCH ×2 (06:27→17:06)
[2017-12-23] MEDS: Cholecalciferol (D-3) 1,000 UNIT TABLET PO SCH (08:40)
[2017-12-23] MEDS: Aspirin Enteric Coated 81 MG Tablet PO SCH (08:40)
--- NOTE | 2017-12-23 15:42 | Internal Med Progress Note ---
Date of Encounter: 12/23/17 Time of Encounter: 11:00 - Assessment and plan (1) Hip fracture, right Current Visit: Yes Status: Acute Assessment and plan: Hip x-ray showed mildly displaced intertrochanteric right hip fracture. Orthopedics consulted status post right hip open reduction intramedullary nail fixation postop day #1 Physical therapy consult with recommendations for placement at nursing home facility Qualifiers: Encounter type: initial encounter Fracture type: closed Qualified Code(s) : S72.001A - Fracture of unspecified part of neck of right femur, initial encounter for closed fracture (2) Dementia Current Visit: No Status: Chronic Assessment and plan: Stable; continue home meds Qualifiers: Dementia type: Alzheimer's disease Alzheimer's disease onset: early-onset Dementia behavioral disturbance: with behavioral disturbance Qualified Code( s): G30.0 - Alzheimer's disease with early onset; F02.81 - Dementia in other diseases classified elsewhere with behavioral disturbance (3) DVT prophylaxis Current Visit: Yes Status: Acute Assessment and plan: Subcutaneous heparin - Time Spent With Patient Total time spent is greater than 50% in coordination of care (as documented) at patient's floor/unit and/or counseling patient: - Subjective Interval history: Patient resting comfortably this morning in no acute distress Awaiting placement for nursing home facility - Constitutional Vitals: Temp Pulse Resp BP Pulse Ox 99.6 F 112 16 114/60 95 12/23/17 14:27 12/23/17 14:27 12/23/17 14:27 12/23/17 14:27 12/23/17 14:27 General appearance: Present: A&O X 0, no acute distress - Cardiovascular Cardiovascular exam: Present: RRR, +S1, +S2. Absent: diastolic murmur, gallop, rubs, systolic murmur Internal Medicine: Result - Labs CBC & Chem 7: 12/22/17 17:18 12/22/17 09:48 Labs: Short CBC 12/22/17 Range/Units 17:18 Hgb 11.9 (11.5-15.4) g/dL Hct 34.0 L (35.3-44.9) % - ABG Interpretation ABG results: PT/INR, D-dimer PT 11.2 Seconds (9.4-12.1) 12/22/17 09:48 - Impressions Impressions Hip X-Ray 12/22/17 00:00 IMPRESSION: Improved alignment of the right intertrochanteric hip fracture status post open reduction and internal fixation. D/ / Peter Vazquez MD / Peter Vazquez MD Interpreting Provider: Peter Vazquez MD Fluoroscopy 12/22/17 15:45 IMPRESSION: Intraprocedural fluoroscopic spot images as above. See separate procedure report for more information. D/ / Magno Townsend MD / Magno Townsend MD Interpreting Provider: Magno Townsend MD Hip X-Ray 12/22/17 15:45 IMPRESSION: Intraprocedural fluoroscopic spot images as above. See separate procedure report for more information. D/ / Magno Townsend MD / Magno Townsend MD Interpreting Provider: Magno Townsend MD - VTE Documentation of Mechanical Device: Venous foot pump, device Consult Discharge Plan - Plan Referrals: Ferny Barr MD [Primary Care Provider] -
[2017-12-24 01:57] LABS: BUN/Creatinine Ratio 30 (6-26); Blood Urea Nitrogen 13 mg/dL (8-23); Calcium 8.5 mg/dL (8.6-10.3); Carbon Dioxide 25 mEq/L (23-29); Chloride 105 mEq/L (98-107); Glucose 128 mg/dL (70-105); Osmolality,Calculated 286 (280-300); Potassium 3.7 mEq/L (3.5-5.1); Sodium 137 mEq/L (136-145); eGFR For African Americans > 60 (> 60); eGFR For Non-African Americans > 60 (> 60)
[2017-12-24 02:25] LABS: Basophils # 0.1 K/mcL (0.0-0.2); Basophils % 0.6 %; Eosinophils % 0.4 %; Hematocrit 27.1 % (35.3-44.9); Hemoglobin 9.3 g/dL (11.5-15.4); Immature Granulocytes % 0.3 % (0-4); Lymphocytes # 1.3 K/mcL (0.6-4.6); Lymphocytes % 13.4 %; Mean Corpuscular HGB Conc 34.3 g/dL (31.6-35.5); Mean Corpuscular Hemoglobin 33.2 pg (28.0-33.3); Mean Corpuscular Volume 96.8 fL (83.0-100.0); Mean Platelet Volume 9.2 fL (9.4-12.4); Monocytes # 1.1 K/mcL (0.0-1.3); Monocytes % 11.8 %; Neutrophils # 7.1 K/mcL (1.6-8.9); Platelet Count 173 K/mcL (140-400); Red Cell Distribution Width 12.4 % (11.5-14.5); Segmented Neutrophils % 73.5 %
[2017-12-24] MEDS: *HR* Heparin 5,000 UNIT/ML VIAL SQ SCH ×2 (06:23→16:55)
[2017-12-24] MEDS: Aspirin Enteric Coated 81 MG Tablet PO SCH (08:22)
[2017-12-24] MEDS: Cholecalciferol (D-3) 1,000 UNIT TABLET PO SCH (08:23)
[2017-12-24] MEDS: OXYCODONE Oral CONC 10 MG/0.5 ML ORAL.SYG SL PRN ×2 (16:55→20:28)
--- NOTE | 2017-12-24 18:09 | Discharge Summary ---
Orders not resulted at time of discharge: Pending orders 12/25/17 04:00 Basic Metabolic Panel AM 0400 Complete Blood Count [HEME] AM 0400 12/26/17 04:00 Basic Metabolic Panel AM 0400 Complete Blood Count [HEME] AM 0400 Date of Encounter: 12/24/17 Time of Encounter: 11:00 - Discharge Diagnosis (1) Hip fracture, right Priority: Primary Status: Acute Qualifiers: Encounter type: initial encounter Fracture type: closed Qualified Code(s) : S72.001A - Fracture of unspecified part of neck of right femur, initial encounter for closed fracture (2) Dementia Priority: Secondary Status: Chronic Qualifiers: Dementia type: Alzheimer's disease Alzheimer's disease onset: early-onset Dementia behavioral disturbance: with behavioral disturbance Qualified Code( s): G30.0 - Alzheimer's disease with early onset; F02.81 - Dementia in other diseases classified elsewhere with behavioral disturbance Hospital course: Patient is a 77-year-old female with past medical history significant for dementia, osteoporosis who was transferred from [facility] for management of acute right hip fracture. Patient was found on hip x-ray to have a mildly displaced intertrochanteric right hip fracture. Orthopedic surgery was consulted with recommendations for a right hip open reduction intramedullary nail fixation which was done on 12/22/17. Patient did well postoperatively and is medically stable to be discharged to alf facility for strengthening rehabilitation. - Time Spent with Patient Total time spent providing and/or coordinating discharge services: Less than 30 minutes - Discharge Medications Prescriptions: OXYCODONE Oral CONC [Oxycodone Oral Conc] 10 mg SL Q6HR PRN 3 Days #12 oral.syg PRN Reason: Severe Pain Home Medications: Aspirin [Lo-Dose Aspirin EC] 81 mg PO DAILY 12/22/17 [History] Calcium Carbonate/Vitamin D3 [Calcium 600 + Vit D Tablet] 1 tab PO DAILY [History] Quetiapine Fumarate [Seroquel] 50 mg PO BID 12/22/17 [History] OXYCODONE Oral CONC [Oxycodone Oral Conc] 10 mg SL Q6HR PRN 3 Days #12 oral.syg 12/24/17 [Rx] Allergies/Adverse Reactions: 3 Allergy/AdvReac Type Severity Reaction Status Date / Time Iodinated Contrast- Oral and Allergy Hives Verified 04/13/17 17:35 IV Dye Date of admission: 12/22/17 15:25 Primary care physician: Ferny Barr MD Consults: 12/22/17 10:15 Consult to Orthopedic Surgery [CONS] Routine Consulting Provider: [facility] Reason for Consult: right hip fracture Call Completed: Yes 12/22/17 18:24 Consult to Occupational Therapy [CONS] Routine Comment: Evaluate, develop and implement POC Reason for Consult: post hip surgery Does patient have active BEDREST order?: No Is patient medically & hemodynamically stable?: Yes Patient assessed for mobility or mobilized this visit?: Yes Consult to Orthopedic Navigator [CONS] [CONS] Routine Consult to Physical Therapy [CONS] Routine Comment: Evaluate, develop and implement POC Reason for Consult: post hip surgery Does patient have active BEDREST order?: No Is patient medically & hemodynamically stable?: Yes Patient assessed for mobility or mobilized this visit?: Yes Consult to Air Control Electronics Operator [CONS] Routine Reason for SW Consult: post -op hip fracture RT Post Op Consult [CONS] Routine - Constitutional Vitals: Temp Pulse Resp BP Pulse Ox 99.0 F 98 18 141/98 93 12/24/17 14:51 12/24/17 14:51 12/24/17 14:51 12/24/17 14:51 12/24/17 14:51 General appearance: Present: A&O X 0, no acute distress - Respiratory Respiratory exam: Present: CTAB. Absent: accessory muscle use, rales, rhonchi, wheezes - Cardiovascular Cardiovascular exam: Present: RRR, +S1, +S2. Absent: diastolic murmur, gallop, rubs, systolic murmur - Patient Status Disposition: Transfer SNF - Discharge Instructions Follow Up With: Ferny Barr MD [Primary Care Provider] - - VTE Documentation of Mechanical Device: Venous foot pump, device
--- NOTE | 2017-12-24 18:10 | Physician Discharge Referral ---
ExtendedCare Referral Info Institutional Level of Care: Skilled - Diagnosis (1) Hip fracture, right Priority: Primary Status: Acute (2) Dementia Status: Chronic - Transfer Medications Prescriptions: OXYCODONE Oral CONC [Oxycodone Oral Conc] 10 mg SL Q6HR PRN 3 Days #12 oral.syg PRN Reason: Severe Pain Home Medications: Aspirin [Lo-Dose Aspirin EC] 81 mg PO DAILY 12/22/17 [History] Calcium Carbonate/Vitamin D3 [Calcium 600 + Vit D Tablet] 1 tab PO DAILY [History] Quetiapine Fumarate [Seroquel] 50 mg PO BID 12/22/17 [History] OXYCODONE Oral CONC [Oxycodone Oral Conc] 10 mg SL Q6HR PRN 3 Days #12 oral.syg 12/24/17 [Rx] Allergies/Adverse Reactions: 3 Allergy/AdvReac Type Severity Reaction Status Date / Time Iodinated Contrast- Oral and Allergy Hives Verified 04/13/17 17:35 IV Dye - Respiratory Orders Smoking Cessation: Smoking cessation has been advised. For more information, call the [place] Tobacco Quit Line at 4-851-UTGU-NOW. CERTIFICATION: I certify that the transfer of the above named patient to an Extended Care Facility is necessary for the continuing treatment of the diagnosis listed. The above information is true and accurate reflection of patient's current condition. Confidential - Redisclosure prohibited without a patient's written consent.
[2017-12-25 07:11] LABS: Basophils # 0.1 K/mcL (0.0-0.2); Basophils % 0.9 %; Eosinophils # 0.3 K/mcL (0.0-0.6); Eosinophils % 4.4 %; Immature Granulocytes % 0.6 % (0-4); Lymphocytes # 1.2 K/mcL (0.6-4.6); Lymphocytes % 17.4 %; Mean Corpuscular HGB Conc 33.3 g/dL (31.6-35.5); Mean Corpuscular Volume 96.1 fL (83.0-100.0); Mean Platelet Volume 9.1 fL (9.4-12.4); Monocytes # 0.7 K/mcL (0.0-1.3); Monocytes % 10.3 %; Neutrophils # 4.7 K/mcL (1.6-8.9); Platelet Count 193 K/mcL (140-400); Red Blood Count 2.81 M/mcL (3.82-4.97); Red Cell Distribution Width 12.2 % (11.5-14.5); Segmented Neutrophils % 66.4 %
[2017-12-25 07:25] VITALS: BP 118/64
[2017-12-25] MEDS: Cholecalciferol (D-3) 1,000 UNIT TABLET PO SCH (07:48)
[2017-12-25] MEDS: Aspirin Enteric Coated 81 MG Tablet PO SCH (07:48)
[2017-12-25] MEDS: *HR* Heparin 5,000 UNIT/ML VIAL SQ SCH (07:48)
[2017-12-25] MEDS: OXYCODONE Oral CONC 10 MG/0.5 ML ORAL.SYG SL PRN (07:49)
[2017-12-25 07:58] LABS: BUN/Creatinine Ratio 27 (6-26); Blood Urea Nitrogen 13 mg/dL (8-23); Calcium 8.5 mg/dL (8.6-10.3); Carbon Dioxide 26 mEq/L (23-29); Glucose 102 mg/dL (70-105); eGFR For African Americans > 60 (> 60); eGFR For Non-African Americans > 60 (> 60)
[2017-12-25 09:11] LABS: Chloride 103 mEq/L (98-107); Osmolality,Calculated 280 (280-300); Potassium 3.6 mEq/L (3.5-5.1); Sodium 135 mEq/L (136-145)
== END 2017-12-25 12:15 | DRG 481 ==
LOC: 3ANU → 3NENU 15:05 → SUATTDRO 15:25
PROVIDERS: ADMIT Orthopaedic Surgery; ATTEND Hospitalist